=== PATIENT | female | born 1950 | race Caucasian/White ===

== ENCOUNTER 2018-05-24 13:45 | Outpatient (CLI) | payer MEDICARE, MEDICAID | END 2018-05-24 13:46 | disposition home or self-care (01) | LOC: BICMAMMO 13:45 | PROVIDERS: ATTEND Family Medicine | DX: Z12.31 Encounter for screening mammogram for malignant neoplasm of breast (principal); N63.11 Unspecified lump in the right breast, upper outer quadrant | CPT/HCPCS: 77063; 77067 ==

== ENCOUNTER 2018-05-30 13:12 | Outpatient (CLI) | payer MEDICARE, MEDICAID | END 2018-05-30 13:13 | disposition home or self-care (01) | LOC: BICMAMMO 13:12 | PROVIDERS: ATTEND Family Medicine | DX: N63.10 Unspecified lump in the right breast, unspecified quadrant (principal) | CPT/HCPCS: 76642; 77065; G0279 ==

== ENCOUNTER 2018-07-16 09:20 | Outpatient (CLI) | payer MEDICARE, MEDICAID ==
[2018-07-16 10:34] LABS: #Basophils 0.1 thou/uL (0.0-0.2); #Eosinphils 0.4 thou/uL (0.0-0.7); #Lymphocytes 1.2 thou/uL (1.20-3.40); #Monocytes 0.6 thou/uL (0.11-0.59); #Neutrophils 4.5 thou/uL (1.40-6.50); %Basophils 0.8 % (0.0-1.0); %Eosinophils 6.5 % (0.0-10.0); %Lymphocytes 16.9 % (21.0-51.0); %Monocytes 9.2 % (0.0-10.0); %Neutrophils 66.6 % (42.0-75.0); Hemoglobin 14.1 g/dL (12.0-16.0); Mean Corpuscular HGB CONC 33.3 g/dL (32.0-36.0); Mean Corpuscular Hemoglobin 29.5 pg (27.0-31.0); Mean Corpuscular Volume 88.6 fL (78.0-98.0); Mean Platelet Volume 8.5 fL (7.4-10.4); Platelet Count 257 thou/uL (130-400); RBC Distribution Width 13.6 % (11.5-14.5); Red Blood Cell (RBC) Count 4.78 mill/uL (4.20-5.40); White Blood Cell (WBC) Count 6.8 thou/uL (4.8-10.8)
[2018-07-16 10:47] LABS: Anion Gap 11 mmol/L (10-20); BUN (Urea Nitrogen) 17 mg/dL (9.8-20.1); Calc. Creatinine Clearance 0 mL/min (70-130); Calcium 10.3 mg/dL (7.8-10.44); Carbon Dioxide 26 mmol/L (23-31); Chloride 105 mmol/L (98-107); Estimated GFR-MDRD 57; Glucose 154 mg/dL (80-115); Potassium 4.6 mmol/L (3.5-5.1); Sodium 137 mmol/L (136-145)
--- NOTE | 2018-07-17 07:31 | EKG ---
Test Reason : Blood Pressure : / mmHG Vent. Rate : 081 BPM Atrial Rate : 081 BPM P-R Int : 186 ms QRS Dur : 090 ms QT Int : 362 ms P-R-T Axes : 053 020 031 degrees QTc Int : 420 ms Normal sinus rhythm Cannot rule out Inferior infarct (cited on or before 22-JUL-2017) Abnormal ECG When compared with ECG of 22-JUL-2017 16:13, T wave inversion no longer evident in Lateral leads QT has shortened Confirmed by DR. Rox VASQUEZ ([id number]) on 07/17/2018 7:31:16 AM Referred By: NATALY Confirmed By:DR. Rox VASQUEZ
== END 2018-07-16 09:21 | disposition home or self-care (01) ==
LOC: LABBT 09:20
PROVIDERS: ATTEND Specialist
DX: Z01.818 Encounter for other preprocedural examination (principal); C50.511 Malignant neoplasm of lower-outer quadrant of right female breast; Z17.0 Estrogen receptor positive status [ER+]
CPT/HCPCS: 80048; 85025; 93005; 93010

== ENCOUNTER 2018-07-23 06:41 | Day surgery (SDC) | payer MEDICARE, MEDICAID ==
[2018-07-16 10:00] VITALS: BMI 29.0
[2018-07-23] MEDS ORDERED: CEFAZOLIN/Water 2 GM/20 ML SYRINGE ONE (09:10)
[2018-07-23] MEDS ORDERED: Ketorolac Tromethamine 30 MG/ML VIAL ONE (09:10)
[2018-07-23] MEDS ORDERED: Bupivacaine HCl 0.5%/Epinephrine 1:200,000/PF 30 ml Vial ONE (09:13)
[2018-07-23] MEDS ORDERED: Isosulfan Blue 50 MG/5 ML VIAL ONE (09:13)
[2018-07-23] MEDS ORDERED: Lidocaine 2% 10 ML INJ ONE (09:13)
[2018-07-23] MEDS ORDERED: Bupivacaine/Epinephrine 0.25% 30 ML VIAL ONE ×2 (09:14→11:54)
[2018-07-23] MEDS ORDERED: Fentanyl 100 MCG/2 ML VIAL ONE (10:34)
--- NOTE | 2018-07-23 12:11 | NM ---
LYMPHOSCINTIGRAPHY RIGHT BREAST: HISTORY: Right breast cancer. FINDINGS: After explaining the procedure and answering all questions, the periareolar aspect of the right breas t was cleansed. A sterile technique was used to carefully inject into the skin a total volume of 1 m L, in 4 equal aliquots, containing a total of 438 millicuries of technetium 99m filtered sulfur collo id, at the 12 o'clock, 3 o'clock, 6 o'clock, and 9 o'clock periareolar positions of the right breast. The injection sites were carefully massaged by the patient. Scintigraphic imaging immediately showed uptake of radiotracer in a focus at the right axilla. The s kin overlying the lymph node was marked. The patient tolerated the procedure well and was transferre d in good condition. IMPRESSION: Technically successful lymphoscintigraphy, revealing a sentinel lymph node at the right axilla. POS: [facility]
--- NOTE | 2018-07-23 13:18 | MMO ---
SURGICAL SPECIMEN MAMMOGRAPHY: History: Breast cancer. FINDINGS: Mammographic evaluation of the surgical specimen obtained by Dr. Deng shows a portion of a localiz ation wire overlying the soft tissue. A thin curvilinear metallic density lies immediately distal to the localization wire. The length of that metallic fragment is estimated at 3 mm. POS: [facility] [place]
[2018-07-23] MEDS ORDERED: traMADol HCl 50 MG TAB ONE (13:39)
--- NOTE | 2018-07-24 13:46 | OP ---
DATE OF PROCEDURE: 07/23/2018 PREOPERATIVE DIAGNOSIS: Right breast cancer. POSTOPERATIVE DIAGNOSIS: Right breast cancer. OPERATION PERFORMED: Right axillary sentinel lymph node biopsy, right breast ultrasound-guided needl e localization, right breast needle localized lumpectomy. SURGEON: Raji Deng M.D. ANESTHESIA: General endotracheal. INDICATIONS: The patient is a 68-year-old white female. She was recently diagnosed with a right luz ast cancer. She expressed interest in plastic surgical consultation, which was obtained preoperative ly with Dr. Joseph. The initial thoughts were that she was going to have the lumpectomy on the right, followed by a breast lift/mastopexy on the right with an accompanying symmetry procedure with a masto pexy on the left. She, however, informed Dr. Joseph and myself this morning that she is very happy wit h the size of her right breast and does not really want to lift or reduce this breast at the time of her surgery. Dr. Joseph had already marked her with Lezama pattern markings for an appropriate incision, but since she decided against having a mastopexy on the right, I opted not to utilize these incision s. Her malignancy is in the upper outer portion of the right breast which, of course, does not confo rm to these incisions. She underwent lymphoscintigraphy in Nuclear Medicine preoperatively, identify ing sentinel lymph nodes. DESCRIPTION OF OPERATION: Informed consent was obtained. The patient was taken to the operating dexter m where general endotracheal anesthesia was obtained with the patient in the supine position. Right breast and axilla were prepped with ChloraPrep and draped in the sterile fashion. I infiltrated 3 mL of Lymphazurin into the periareolar subdermal tissue of the right breast and massaged the breast for 5 minutes. I turned my attention initially to the axilla. Local anesthetic was infiltrated and a t ransverse axillary incision was created. The Neoprobe was utilized to identify areas of maximum radi o intensity. I was able to identify 3 lymph nodes within the right axilla that had some degree of ra dioactivity or blue dye. These three lymph nodes were each dissected circumferentially and all inves ting lymphatics were divided between clamps and 3-0 silk ties. These were submitted for touch prep a nd the touch prep was found to be negative with each of these nodes. Meticulous hemostasis obtained within the wound. The wound was closed in layers with 3-0 and 4-0 Mon ocryl suture and Dermabond was placed at the end of the operation. Attention was then turned to the malignancy on the right breast. This was easily identified in the u pper outer quadrant of the right breast using the ultrasound. I marked the location of the malignanc y on the breast in a grid type fashion. I then placed the localizing needle directly into the malign michelle using a medial to lateral approach. Local anesthetic was infiltrated using 0.25% Marcaine with epinephrine and a transverse incision was created incorporating the localizing needle. Dissection was carried through skin and subcutaneous ti ssue. Flaps were raised within the lumpectomy incision. The tissue into which the needle entered wa s grasped with Allis clamps and I carefully dissected a wide lump of tissue around the localizing nee dle in line of the overlying skin graft. The specimen was removed and tagged with suture for orienta tion. By palpation, it seems that the posterior aspect was relatively close, although there was no e vidence of any residual malignancy. To be careful, I decided to obtain an additional posterior maeve n of tissue. This was about 5 mm thick along the entire posterior wall of the specimen. This was al so tagged for orientation. The initial specimen was removed and was submitted for specimen mammograp hy, which did show the malignancy and the clip within this. The wound was irrigated. Meticulous hemostasis obtained. The wound was closed in layers with 3-0 an d 4-0 Monocryl suture. Dermabond was placed externally. There were no complications. The patient t olerated the procedure well and was taken to recovery room in stable condition.
== END 2018-07-23 14:00 | disposition home or self-care (01) ==
LOC: SDC 06:41
PROVIDERS: ATTEND Specialist
PROC: 0HBT0ZZ Excision of Right Breast, Open Approach (ICD-10-PCS; principal; 2018-07-23)
PROC: 07B50ZX Excision of Right Axillary Lymphatic, Open Approach, Diagnostic (ICD-10-PCS; 2018-07-23)
DX: C50.411 Malignant neoplasm of upper-outer quadrant of right female breast (principal); I10 Essential (primary) hypertension; M19.90 Unspecified osteoarthritis, unspecified site; G89.29 Other chronic pain; M54.9 Dorsalgia, unspecified; E78.5 Hyperlipidemia, unspecified; I70.90 Unspecified atherosclerosis; M17.9 Osteoarthritis of knee, unspecified; Z87.891 Personal history of nicotine dependence; Z79.1 Long term (current) use of non-steroidal anti-inflammatories (NSAID); Z79.82 Long term (current) use of aspirin; Z79.4 Long term (current) use of insulin; Z79.899 Other long term (current) drug therapy; Z17.0 Estrogen receptor positive status [ER+]
CPT/HCPCS: 76098; 78195; 88307; 88333; 88334; A9541; J0131; J0670; J1885; J3010; Q9968

== ENCOUNTER 2018-08-05 10:09 | Outpatient (CLI) | payer MEDICARE, MEDICAID | END 2018-08-05 10:10 | disposition home or self-care (01) | LOC: BICMAMMO 10:09 | PROVIDERS: ATTEND Internal Medicine Medical Oncology | DX: C50.411 Malignant neoplasm of upper-outer quadrant of right female breast (principal); M85.89 Other specified disorders of bone density and structure, multiple sites; Z78.0 Asymptomatic menopausal state | CPT/HCPCS: 77080 ==

== ENCOUNTER 2019-04-14 13:36 | Emergency (ER) | payer MEDICARE, MEDICAID ==
[2019-04-14] MEDS ORDERED: Ketorolac Tromethamine 30 MG/ML VIAL ONE (13:56)
--- NOTE | 2019-04-14 14:33 | RAD ---
AP view of the pelvis INDICATION: Right hip pain for one week COMPARISON: None. FINDINGS: Bones: No acute fracture or subluxation is evident. Bone mineralization appears within normal limits. Hips: There is mild degenerative arthrosis of both hips. SI joints and symphysis pubis: There is mild degenerative change of both SI joints. Intrapelvic contents: There are moderate vascular calcifications seen involving the visualized vascul ature. IMPRESSION: No acute osseous abnormality.
--- NOTE | 2019-04-14 14:34 | RAD ---
Right hip 2 views INDICATION: Right hip pain COMPARISON: None FINDINGS: Bones: No acute osseous abnormality. Bone mineralization appears within normal limits. Hip joint: There is mild degenerative arthrosis of the right hip. There is abnormal convexity involvi ng the anterior aspect of the femoral head neck junction which can predispose symptoms of CAM type femoral acetabular impingement. SI joints and symphysis pubis: There is mild right SI joint osteoarthrosis. Intrapelvic contents: There are moderate vascular calcifications seen involving the visualized vascul ature. Surrounding soft tissues: Radiographically normal. IMPRESSION: 1. Mild osteoarthrosis of the right hip.
--- NOTE | 2019-04-14 14:45 | ULT ---
ULTRASOUND DOPPLER DUPLEX VENOUS RIGHT LOWER EXTREMITY: DATE: 04/14/2019 HISTORY: Right lower Katie pain TECHNIQUE: Grayscale, color-flow, and spectral analysis, of major veins of right lower extremity. FINDINGS: There is demonstration of blood flow with normal compressibility, of the right common femoral, profun da femoral, greater saphenous, femoral, popliteal, and posterior tibial, veins. IMPRESSION: Negative. No deep venous thrombosis of right lower extremity.
== END 2019-04-14 14:47 | disposition home or self-care (01) ==
LOC: SCSER 13:36
DX: M54.31 Sciatica, right side (principal); M25.551 Pain in right hip; I10 Essential (primary) hypertension; M19.90 Unspecified osteoarthritis, unspecified site; F32.9 Major depressive disorder, single episode, unspecified; F17.210 Nicotine dependence, cigarettes, uncomplicated; Z79.899 Other long term (current) drug therapy
CPT/HCPCS: 72170; 96372; J1885

== ENCOUNTER 2019-05-22 09:44 | Outpatient (CLI) | payer MEDICARE, MEDICAID ==
--- NOTE | 2019-05-22 12:34 | MRI ---
MRI LUMBAR SPINE WITHOUT CONTRAST: INDICATIONS: Spinal stenosis. Lumbar pain. TECHNIQUE: Multiple axial tomograms obtained through the lumbar spine. FINDINGS: The lumbar vertebrae maintain normal height and alignment. There are degenerative disk changes. Los s of disk space at L4-L5 and at L5-S1 noted. At L1-L2, there is a broad-based disk bulge with central protrusion, which does exhibit mild superior migration. This flattens the anterior thecal sac but does not result in significant central canal s tenosis. At L2-L3, there is a diffuse disk bulge. There is asymmetric disk protrusion paracentrally, on the l eft, indenting the anterior thecal sac. There is also a small focal protrusion paracentrally, on the right, which encroaches into the right foramina. A tiny cystic focus is seen along this disk margin , which may represent a tiny annular cyst associated with this small protrusion on the right. It gonzalez s encroach into the right foramina. There is abnormal signal in the anterior spinal canal, on the right, along the inferior border of the L3 vertebra. This appears to represent a sequestered disk fragment, which has migrated superiorly f rom L3-L4 disk. This fragment measures 8 mm in AP dimension in the axial plane and compresses the an terior thecal sac on the right. At the L3-L4 disk space, a broad-based bulge flattens the thecal sac , and there is mild central canal stenosis. At L4-L5, degenerative disk change with disk space narrowing. Mild diffuse disk bulge flattens the a nterior thecal sac. Facet hypertrophy. Mild central canal stenosis. At L5-S1, broad-based disk bulge with small central protrusion, indenting the anterior thecal sac. F acet hypertrophy. There is bilateral foraminal stenosis due to bilateral disk bulge and facet hypert rophy. The disk osteophyte complex is more prominent to the left and appears to displace the exiting left L5 nerve root. IMPRESSION: 1. Disk protrusion at L1-L2 with mild superior migration of the disk, centrally, as described. 2. Disk protrusion at L2-L3, as described above. 3. Sequestered disk fragment in the anterior spinal canal, on the right, along the inferior L3 verte bra, which appears to have migrated from the L3-L4 disk space. 4. Degenerative disk change at L4-L5 and at L5-S1, as described. POS: [facility]
== END 2019-05-22 09:45 | disposition home or self-care (01) ==
LOC: BICMRI 09:44
PROVIDERS: ATTEND Orthopaedic Surgery
DX: M48.061 Spinal stenosis, lumbar region without neurogenic claudication (principal); M51.37 Other intervertebral disc degeneration, lumbosacral region; M51.36 Other intervertebral disc degeneration, lumbar region; M51.26 Other intervertebral disc displacement, lumbar region; M51.27 Other intervertebral disc displacement, lumbosacral region
CPT/HCPCS: 72148

== ENCOUNTER 2019-05-26 13:14 | Emergency (ER) | payer MEDICARE, MEDICAID ==
[2019-05-26] MEDS ORDERED: Morphine 4 MG/ML VIAL ONE (14:39)
[2019-05-26] MEDS ORDERED: Dexamethasone 4 mg/ml Vial ONE (14:40)
[2019-05-26] MEDS ORDERED: Ondansetron ODT 4 MG TAB ONE (14:40)
== END 2019-05-26 15:40 | disposition home or self-care (01) ==
LOC: ERS 13:14
DX: M54.16 Radiculopathy, lumbar region (principal); F32.9 Major depressive disorder, single episode, unspecified; Z87.891 Personal history of nicotine dependence
CPT/HCPCS: 96372; 99283; J1100; J2270; Q0162

== ENCOUNTER 2019-06-05 10:36 | Inpatient (IN) | payer MEDICARE, MEDICAID ==
[2019-06-05] MEDS ORDERED: cefTRIAXone\\ROCEPHIN 2 GM VIAL ONE (11:08)
[2019-06-05 11:21] LABS: Bilirubin Negative (Negative); Blood, Urine 2+ (Negative); Clarity Turbid (Clear); Glucose, Urine (Dipstick) Greater than 1000 mg/dL (Negative); Leukocyte 75 Leu/uL (Negative); Nitrite 2+ (Negative); Protein, Urine (Dipstick) 30 mg/dL (Neg-Trace); Squamous Epithelial 0-3 HPF (0-3); Urobilinogen Normal mg/dL (Less than 2)
[2019-06-05 11:26] LABS: #Eosinphils 0.2 thou/uL (0.0-0.7); #Lymphocytes 0.5 thou/uL (1.20-3.40); #Neutrophils 10.2 thou/uL (1.40-6.50); %Basophils 0.4 % (0.0-1.0); %Eosinophils 1.4 % (0.0-10.0); %Lymphocytes 4.3 % (21.0-51.0); %Monocytes 8.3 % (0.0-10.0); %Neutrophils 85.5 % (42.0-75.0); Hemoglobin 11.4 g/dL (12.0-16.0); Mean Corpuscular HGB CONC 33.6 g/dL (32.0-36.0); Mean Corpuscular Hemoglobin 31.2 pg (27.0-31.0); Mean Platelet Volume 7.8 fL (7.4-10.4); Platelet Count 231 thou/uL (130-400); RBC Distribution Width 14.1 % (11.5-14.5); Red Blood Cell (RBC) Count 3.65 mill/uL (4.20-5.40); White Blood Cell (WBC) Count 11.9 thou/uL (4.8-10.8)
[2019-06-05 11:29] LABS: Bacteria/HPF 4+ HPF (None Seen)
--- NOTE | 2019-06-05 11:37 | RAD ---
EXAM: Single view of the chest HISTORY: Sepsis and tachycardia COMPARISON: None FINDINGS: Single view of the chest shows a normal sized cardiomediastinal silhouette. Increased dens ity is seen projecting over the right lower lobe which could represent atelectasis or an infiltrate. Degenerative changes are seen in the spine. There are multiple remote right rib fractures . IMPRESSION: Right basilar atelectasis versus infiltrate
[2019-06-05 11:50] LABS: ALT (SGPT) 91 U/L (8-55); AST (SGOT) 129 U/L (5-34); Albumin 3.9 g/dL (3.4-4.8); Alkaline Phosphatase 71 U/L (40-150); Anion Gap 16 mmol/L (10-20); BUN (Urea Nitrogen) 21 mg/dL (9.8-20.1); Bilirubin, Total 0.9 mg/dL (0.2-1.2); Calc. Creatinine Clearance 0 mL/min (70-130); Calcium 9.4 mg/dL (7.8-10.44); Carbon Dioxide 19 mmol/L (23-31); Chloride 99 mmol/L (98-107); Estimated GFR-MDRD 58; Globulin 2.7 g/dL (2.4-3.5); Glucose 79 mg/dL (80-115); Protein, Total 6.6 g/dL (6.0-8.3); Sodium 130 mmol/L (136-145)
[2019-06-05] MEDS ORDERED: Azithromycin 500 MG VIAL ONE (12:06)
[2019-06-05 15:57] VITALS: BMI 27.8
[2019-06-05] MEDS ORDERED: Dextrose 5% in Water 1,000 ML IV PRN (17:54)
[2019-06-05] MEDS ORDERED: hydrALAZINE 20 MG/ML VIAL SLOW IVP PRN (17:54)
[2019-06-05] MEDS ORDERED: Diabetic Tussin 200 MG/10 ML UDCUP PO PRN (17:54)
[2019-06-05] MEDS ORDERED: Benzonatate 100 MG CAP PO PRN (17:54)
[2019-06-05] MEDS ORDERED: Ondansetron PF 4 MG/2 ML Vial IVP PRN (17:54)
[2019-06-05] MEDS ORDERED: Dextrose 50% Abboject 50 ML SYRINGE SLOW IVP PRN (17:54)
[2019-06-05] MEDS: Sodium Chloride 0.9% 1,000 ML IV SCH (18:41)
[2019-06-05] MEDS: Acetaminophen 500 MG TAB PO PRN ×2 (18:41→23:41)
[2019-06-05] MEDS: Famotidine 20 MG TAB PO SCH (20:08)
[2019-06-05] MEDS: Bupropion 150 MG XL TAB PO SCH (20:08)
[2019-06-05] MEDS: metFORMIN 500 MG TAB PO SCH (20:08)
[2019-06-05] MEDS: traMADol HCl 50 MG TAB PO PRN (23:40)
--- NOTE | 2019-06-06 01:08 | HP ---
PRIMARY CARE PROVIDER: Dr. Cuca Martinez. CHIEF COMPLAINT: Falling. HISTORY OF PRESENT ILLNESS: This is a 68-year-old female, who presented to [facility] Emergency Department in transfer by EMS personnel after apparently sustaining multiple falls at home. The patient resides at [place] at [place], stating multiple falls over the last several days. The patient states she was increased up to 1200 mg of gabapentin in the last 2 to 3 days and has been taking the higher dose, noting difficulty walking, somnolence, and generally feeling out of sorts. The patient has been using a rolling walker in the last several days. Previously, ambulating without assistive device. The patient denies any loss of consciousness, but states she felt unsteady on her feet after taking the gabapentin. The patient also admits to taking concurrent hydrocodone for back pain, apparently prescribed by her cork painter and grader. The patient does admit to some urinary frequency, but no documented fever, chills, or recent exposure history. EMS was notified after patient fell at home. On evaluating the patient noting O2 saturations in the 70% range on room air. The patient was placed on oxygen supplementation and given Tylenol 1000 mg x1 dose after patient was noted with 103 degree fever. The patient denied any known sick contacts or recent travel history. The patient does admit to mild productive cough of yellow sputum. In the emergency room, the patient underwent general evaluation including chest imaging showing questionable right lower lobe infiltrate. Urinalysis also suspicious for infectious process. At which point, the patient received IV Zithromax and Rocephin. The patient also received DuoNeb and intravenous normal saline after concern for sepsis as the patient met multiple criteria. PAST MEDICAL HISTORY: 1. Hypertension. 2. Diabetes mellitus, type 2. 3. Chronic pain syndrome. 4. History of breast cancer, status post surgery and chemotherapy. 5. Tobacco abuse. 6. Atherosclerosis. 7. Hyperlipidemia. 8. Hyperthyroidism. 9. Major depression. PAST SURGICAL HISTORY: 1. Status post bilateral tubal ligation. 2. Status post cervical spine disk repair. 3. Status post right breast lumpectomy. CURRENT MEDICATIONS: Based on previous admission in 2018; 1. Enteric-coated aspirin 81 mg p.o. daily. 2. Bupropion 150 mg p.o. b.i.d. 3. Invokana 100 mg p.o. q.a.m. 4. Glargine insulin 20 units subcutaneously daily. 5. Losartan 50 mg p.o. daily. 6. Mobic 7.5 mg p.o. q.a.m. 7. Metformin 500 mg p.o. b.i.d. 8. Lovastatin 20 mg p.o. nightly. ALLERGIES: NO KNOWN DRUG ALLERGIES. FAMILY HISTORY: Mother and father with history of CVA. SOCIAL HISTORY: The patient resides at [facility] x4 years. Multiple falls. Tobacco use currently. No alcohol or illicit drug use. REVIEW OF SYSTEMS: CONSTITUTIONAL: Negative for weight loss or gain, ability to conduct usual activities. SKIN: Negative for rash, itching. EYES: Negative for double vision, pain. ENT/MOUTH: Negative for nose bleeding, neck stiffness, pain, tenderness. CARDIOVASCULAR: Negative for palpitations, dyspnea on exertion, orthopnea. RESPIRATORY: Negative for shortness of breath, wheezing, cough, hemoptysis, fever or night sweats. GASTROINTESTINAL: Negative for poor appetite, abdominal pain, heartburn, nausea, vomiting, constipation, or diarrhea. GENITOURINARY: Negative for urgency, frequency, dysuria, nocturia. MUSCULOSKELETAL: Negative for pain, swelling. NEUROLOGIC/PSYCHIATRIC: Negative for anxiety, depression. ALLERGY/IMMUNOLOGIC: Negative for skin rash, bleeding tendency. Otherwise negative except as stated per HPI. PHYSICAL EXAMINATION: VITAL SIGNS: On admission, blood pressure 116/59, pulse 87, respiratory rate 18, temperature 98.6 degrees Fahrenheit, initially 103 degrees Fahrenheit on admission in the emergency room. O2 saturation 92% on 3 L/minute by nasal cannula. GENERAL APPEARANCE: This is a 68-year-old female, alert and oriented x3, pleasant, in no acute distress. HEENT: Pupils are equal, round, reactive to light and accommodation. Extraocular muscles are intact. No scleral icterus. No conjunctival injection. Nares patent. OP is clear. Edentulous. NECK: Supple. No cervical adenopathy. No thyromegaly. No carotid bruits. No JVD appreciated. Cervical spine with full active and passive range of motion. No meningeal signs noted. CHEST: Diminished breath sounds in the bases bilaterally. Occasional expiratory wheeze. CARDIOVASCULAR: S1, S2 without noted murmur, rub, or gallop. ABDOMEN: Rounded, soft, nontender, and nondistended. Bowel sounds are positive in all 4 quadrants. There is no hepatosplenomegaly. No abdominal bruits. No rebound or guarding appreciated. EXTREMITIES: Warm and dry with fair turgor. No clubbing, cyanosis, or asymmetric edema appreciated. Pulses palpable distally at the dorsalis pedis, posterior tibial, and popliteal arteries bilaterally. Capillary refill less than 2 seconds. NEUROLOGIC: Cranial nerves 2 through 12 are grossly intact. No focal or lateralizing signs appreciated. PERTINENT LABORATORY AND X-RAY FINDINGS: Sodium 130, potassium 4.0, chloride 99, CO2 of 19, BUN 21, creatinine 0.96, estimated GFR 58. Lactic acid level 0.8, total bilirubin 0.9, AST 129, ALT of 91, alkaline phosphatase 71. CBC showed a white blood cell count of 11.9, hemoglobin 11.4, hematocrit 34, and platelet count 231 with 86% neutrophils. Urinalysis positive for glucose, ketones, blood, nitrites, and leukocyte esterase. Portable chest x-ray dated 06/05/2019, showed right basilar infiltrate. EKG dated 06/05/2019 by my interpretation shows sinus mechanism with heart rates in the low 100s. Normal R-wave progression noted in the precordial leads. Normal axis. No acute ST-T wave changes appreciated. ASSESSMENT/PLAN: 1. Sepsis. Suspect secondary to community-acquired pneumonia in addition to urinary tract infection. We will continue general sepsis protocol. The patient received IV fluids in addition to Rocephin and Zithromax in the Emergency Department. Continue general management as outlined below. 2. Right lower lobe community-acquired bacterial pneumonia. We will continue Levaquin 750 mg IV daily. Add DuoNeb q.4 hours. Blood cultures pending. 3. Urinary tract infection. Suspected given initial urinalysis results. Continue Levaquin as outlined above and await final urine culture results. 4. Hyponatremia. Suspect multifactorial including poor oral intake and current infectious process. Continue intravenous normal saline at 75 mL/h. Repeat sodium level in the a.m. 5. Multiple falls. Suspect multifactorial including iatrogenic influence with increased gabapentin dosing. Hold gabapentin and sedating medications. PT evaluation for functional assessment. 6. Tobacco abuse. We will offer smoking cessation resource prior to discharge. 7. Diabetes mellitus type 2, insulin requiring. Insulin sliding scale for reflexive coverage. Resume home insulin regimen with serial Accu-Cheks. ADA diet. 8. Prophylaxis. SCDs while in bed. Pepcid 20 mg p.o. b.i.d. PT evaluation pending. CODE STATUS: Full. Surrogate medical decision maker is the patient's sister. Job ID: [id number]
[2019-06-06 06:37] LABS: Band 8 % (5-11); Eosinophils 1 % (0-10); Hemoglobin 10.4 g/dL (12.0-16.0); Lymphocytes 8 % (21-51); MDiff Complete? YES; Mean Corpuscular HGB CONC 32.9 g/dL (32.0-36.0); Mean Corpuscular Hemoglobin 31.5 pg (27.0-31.0); Mean Corpuscular Volume 95.7 fL (78.0-98.0); Mean Platelet Volume 7.6 fL (7.4-10.4); Metamyelocyte 2 % (0-0); Monocytes 5 % (0-10); Neutrophil 75 % (42-75); Platelet Count 218 thou/uL (130-400); Platelet Morphology Comment Appears Adequate; RBC Distribution Width 14.2 % (11.5-14.5); Reactive Lymphocytes 1 % (0-10); Red Blood Cell (RBC) Count 3.29 mill/uL (4.20-5.40); White Blood Cell (WBC) Count 8.7 thou/uL (4.8-10.8)
[2019-06-06 06:51] LABS: ALT (SGPT) 66 U/L (8-55); AST (SGOT) 86 U/L (5-34); Albumin 3.1 g/dL (3.4-4.8); Alkaline Phosphatase 62 U/L (40-150); Anion Gap 14 mmol/L (10-20); BUN (Urea Nitrogen) 13 mg/dL (9.8-20.1); Bilirubin, Total 0.4 mg/dL (0.2-1.2); Calc. Creatinine Clearance 85 mL/min (70-130); Calcium 8.7 mg/dL (7.8-10.44); Carbon Dioxide 17 mmol/L (23-31); Chloride 110 mmol/L (98-107); Estimated GFR-MDRD 74; Globulin 2.6 g/dL (2.4-3.5); Glucose 79 mg/dL (80-115); Protein, Total 5.7 g/dL (6.0-8.3); Sodium 137 mmol/L (136-145)
[2019-06-06] MEDS: traMADol HCl 50 MG TAB PO PRN (08:16)
[2019-06-06] MEDS: Losartan 25 MG TAB PO SCH (08:17)
[2019-06-06] MEDS: Famotidine 20 MG TAB PO SCH ×2 (08:17→20:23)
[2019-06-06] MEDS: Bupropion 150 MG XL TAB PO SCH (08:17)
[2019-06-06] MEDS: metFORMIN 500 MG TAB PO SCH (08:17)
[2019-06-06] MEDS: Aspirin 81 mg Enteric Coated Tablet PO SCH (08:17)
[2019-06-06] MEDS: Sodium Chloride 0.9% 1,000 ML IV SCH (08:19)
[2019-06-06] MEDS: Lidocaine 5% Patch TD SCH (08:20)
[2019-06-06] MEDS: Insulin Glargine 20 UNITS in Pre-Filled Syringe 1 EACH SC SCH (08:20)
[2019-06-06] MEDS: Fluticasone Propionate Nasal Spray 16 gm Bottle NASAL SCH (08:20)
[2019-06-06] MEDS: Acetaminophen 500 MG TAB PO PRN ×2 (08:33→18:14)
[2019-06-06] MEDS ORDERED: Non-Formulary Item 1 EACH (Insulin Glargine,Hum.Rec.Anlog [Basaglar Kwikpen U-100] 20 UNI SQ SCH (09:00)
[2019-06-06] MEDS ORDERED: Canagliflozin [Invokana] 100 MG PO SCH (09:00)
[2019-06-06] MEDS: Meloxicam 7.5 MG TAB PO SCH (09:39)
[2019-06-06] MEDS: Ondansetron ODT 4 MG TAB PO PRN (16:10)
--- NOTE | 2019-06-06 17:15 | PDOC.HOSPP ---
- Subjective Subjective: f/u for sepsis due to PNA/UTI with Ucx showing GNR and currently on Levaquin. - Objective Vital Signs & Weight: Vital Signs (12 hours) Temp Pulse Resp BP BP Pulse Ox Pulse Ox 06/06/19 16:00 99.4 F 106 H 18 130/60 91 L 06/06/19 14:09 89 20 90 L 06/06/19 11:20 86 20 94 L 06/06/19 11:00 98.9 F 102 H 20 142/74 H 92 L 06/06/19 10:31 91 L 06/06/19 08:33 102 F H 06/06/19 08:15 95 06/06/19 08:00 101.2 F H 103 H 20 133/73 95 06/06/19 07:08 87 22 H 93 L 06/06/19 05:42 98.5 F 87 20 137/78 93 L Pulse Ox Pulse Ox 06/06/19 16:00 06/06/19 14:09 06/06/19 11:20 06/06/19 11:00 06/06/19 10:31 83 L 90 L 06/06/19 08:33 06/06/19 08:15 06/06/19 08:00 06/06/19 07:08 06/06/19 05:42 Weight Weight 172 lb 8 oz I&O: 06/05/19 06/06/19 06/07/19 06:59 06:59 06:59 Intake Total 1780 Balance 1780 Result Diagrams: 06/06/19 05:44 06/06/19 05:44 Additional Labs: Accuchecks 06/06/19 06/06/19 06/06/19 16:50 11:38 05:47 POC Glucose 130 H 113 H 102 06/05/19 06/05/19 20:04 17:09 POC Glucose 188 H 76 Microbiology 06/05/19 11:15 Venous blood - Right Arm Blood Culture - Preliminary Specimen has been received and culture in progress. No Growth to date. 06/05/19 11:04 Urine Straight Catheter Urine Culture - Preliminary Presumptive Escherichia coli Laboratory Tests 06/05/19 06/05/19 06/06/19 11:15 11:15 05:44 WBC 11.9 H Hgb 11.4 L Neutrophils % 85.5 H Neutrophils % (Manual) AST 129 H 86 H ALT 91 H 66 H 06/06/19 05:44 WBC Hgb Neutrophils % Neutrophils % (Manual) 75 AST ALT ROS - Review of Systems All systems: All other ROS were reviewed and found negative. - Medication Medications: Active Medications Generic Name Dose Route Start Last Admin Trade Name Freq PRN Reason Stop Dose Admin Acetaminophen 1,000 mg 06/05/19 17:54 06/06/19 08:33 Tylenol PO 1,000 mg Q6H PRN Administration Mild Pain (1-3) Albuterol/Ipratropium 3 ml 06/05/19 19:00 06/06/19 14:09 Duoneb NEB 3 ml [id number] BRAD Administration Aspirin 81 mg 06/06/19 09:00 06/06/19 08:17 Ecotrin PO 81 mg QAM BRAD Administration Bupropion HCl 150 mg 06/05/19 21:00 06/06/19 08:17 Wellbutrin Xl PO 150 mg BID BRAD Administration Famotidine 20 mg 06/05/19 21:00 06/06/19 08:17 Pepcid PO 20 mg BID BRAD Administration Fluticasone Propionate 0 gm 06/06/19 09:00 06/06/19 08:20 Flonase Nasal [place] NASAL 1 spr DAILY BRAD Administration Levofloxacin 750 mg/ Device 150 mls @ 100 mls/hr 06/05/19 18:30 06/05/19 18: 41 IVPB 150 mls Q24HR BRAD Administration Sodium Chloride 1,000 mls @ 75 mls/hr 06/05/19 17:54 06/06/19 08:19 Normal Saline 0.9% IV 1,000 mls .[id number] BRAD Administration Insulin Glargine 20 units/ 0.2 mls @ 0 mls/hr 06/06/19 09:00 06/06/19 08:20 Miscellaneous Medication SC 0.2 mls QAM BRAD Administration Lidocaine 1 patch 06/06/19 09:00 06/06/19 08:20 Lidoderm 5% Patch TD 1 patch DAILY BRAD Administration Losartan Potassium 50 mg 06/06/19 09:00 06/06/19 08:17 Cozaar PO 50 mg QAM BRAD Administration Meloxicam 7.5 mg 06/06/19 09:00 06/06/19 09:39 Mobic PO 7.5 mg QAM BRAD Administration Metformin HCl 500 mg 06/05/19 21:00 06/06/19 08:17 Glucophage PO 500 mg BID BRAD Administration Ondansetron HCl 4 mg 06/05/19 17:54 06/06/19 16:10 Zofran Odt PO 4 mg Q6H PRN Administration Nausea/Vomiting Sodium Chloride 10 ml 06/05/19 21:00 06/06/19 08:21 Flush - Normal Saline IVF 10 ml Q12HR BRAD Administration Tramadol HCl 50 mg 06/05/19 23:05 06/06/19 08:16 Ultram PO 50 mg Q4H PRN Administration Moderate Pain (4-6) - Exam NAD, awake alert Eye: PERRL, anicteric sclera ENT: normocephalic atraumatic, no oropharyngeal lesions Neck: supple, symmetric, no JVD, no Thyromegaly Heart: RRR, no murmur, no gallops, no rubs Respiratory: no wheezes, no rales, no tachypnea, rhonchi (few basilar rhonchi) Gastrointestinal: soft, non-tender, non-distended, normal bowel sounds, no palpable masses Extremities: no cyanosis, no edema Neurological: CN's grossly intact, no focal deficits, no new deficit Psychiatric: normal behavior, A&O x 3 Hosp A/P (1) Sepsis Code(s): A41.9 - SEPSIS, UNSPECIFIED ORGANISM Status: Acute Plan: Continue Levaquin, await final Ucx identification, continue IVF's (2) Bacterial pneumonia Code(s): J15.9 - UNSPECIFIED BACTERIAL PNEUMONIA Status: Acute Plan: Continue Levaquin, pulmonary support, O2 prn (3) E. coli UTI Code(s): N39.0 - URINARY TRACT INFECTION, SITE NOT SPECIFIED; B96.20 - UNSP ESCHERICHIA COLI THE CAUSE OF DISEASES CLASSD [id number] Status: Acute Plan: Continue Levaquin IV pending final identification/sensitivities, add Rocephin pending sensitivities (4) Multiple falls Code(s): R29.6 - REPEATED FALLS Status: Acute Plan: PT/OT for functional assessment (5) DM2 (diabetes mellitus, type 2) Status: Chronic Plan: ISS, Metformin, Lantus, ADA - Plan continue antibiotics, PT/OT, hospice social worker, out of bed/ambulate, DVT proph w/ SCDs Stable overall Continue Levaquin Add Rocephin IV pending final cx results with sensitivities OOB with PT Resume home medications but hold BP regimen x 24h Saline lock IVF AM lab: CMP
[2019-06-06] MEDS ORDERED: cefTRIAXone\\ROCEPHIN 2 GM in Sodium Chloride 0.9% 100 ML IVPB SCH ×2 (18:00→19:30)
[2019-06-06] MEDS: Bupropion 100 MG SR TAB PO SCH (20:23)
[2019-06-07] MEDS: traMADol HCl 50 MG TAB PO PRN ×2 (03:18→10:08)
[2019-06-07] MEDS: Acetaminophen 500 MG TAB PO PRN ×2 (03:19→16:51)
[2019-06-07 07:06] LABS: ALT (SGPT) 56 U/L (8-55); AST (SGOT) 55 U/L (5-34); Albumin 3.3 g/dL (3.4-4.8); Alkaline Phosphatase 65 U/L (40-150); Anion Gap 14 mmol/L (10-20); BUN (Urea Nitrogen) 14 mg/dL (9.8-20.1); Bilirubin, Total 0.5 mg/dL (0.2-1.2); Calc. Creatinine Clearance 82 mL/min (70-130); Calcium 8.8 mg/dL (7.8-10.44); Carbon Dioxide 20 mmol/L (23-31); Chloride 106 mmol/L (98-107); Estimated GFR-MDRD 71; Globulin 2.6 g/dL (2.4-3.5); Glucose 104 mg/dL (80-115); Protein, Total 5.9 g/dL (6.0-8.3); Sodium 136 mmol/L (136-145)
[2019-06-07] MEDS ORDERED: metFORMIN 500 MG TAB PO SCH (09:00)
[2019-06-07] MEDS ORDERED: (Empagliflozin [Jardiance] 10 MG) PO SCH (09:00)
[2019-06-07] MEDS: Insulin Glargine 20 UNITS in Pre-Filled Syringe 1 EACH SC SCH (10:07)
[2019-06-07] MEDS: Lidocaine 5% Patch TD SCH (10:08)
[2019-06-07] MEDS: Aspirin 81 mg Enteric Coated Tablet PO SCH (10:09)
[2019-06-07] MEDS: Famotidine 20 MG TAB PO SCH ×2 (10:09→21:46)
[2019-06-07] MEDS: Losartan 25 MG TAB PO SCH (10:10)
[2019-06-07] MEDS: Fluticasone Propionate Nasal Spray 16 gm Bottle NASAL SCH (10:10)
[2019-06-07] MEDS: Anastrozole 1 MG TAB PO SCH (10:12)
[2019-06-07] MEDS: Meloxicam 7.5 MG TAB PO SCH (10:13)
[2019-06-07] MEDS: Bupropion 100 MG SR TAB PO SCH ×2 (11:12→21:46)
--- NOTE | 2019-06-07 11:38 | PDOC.HOSPP ---
- Subjective Subjective: Still has the cough, but it is less productive and the sputum is clearer. Says she cannot do what is being asked of her, like taking a deep breath. Says it makes her want to "puke". Says she cannot get and walk with the walker with therapy either. - Objective Vital Signs & Weight: Vital Signs (12 hours) Temp Pulse Resp BP BP Pulse Ox 06/07/19 10:29 101 H 24 H 06/07/19 06:39 95 22 H 90 L 06/07/19 03:24 98.5 F 83 20 133/68 99 06/07/19 00:00 98.8 F 83 20 106/60 99 Weight Weight 172 lb 8 oz I&O: 06/06/19 06/07/19 06/08/19 06:59 06:59 06:59 Intake Total 1780 1170 Balance 1780 1170 Result Diagrams: 06/06/19 05:44 06/07/19 06:18 Additional Labs: Accuchecks 06/07/19 06/06/19 06/06/19 05:28 20:05 16:50 POC Glucose 114 H 168 H 130 H 06/06/19 11:38 POC Glucose 113 H ROS - Review of Systems All systems: All other ROS were reviewed and found negative. - Medication Medications: Active Medications Generic Name Dose Route Start Last Admin Trade Name Freq PRN Reason Stop Dose Admin Acetaminophen 1,000 mg 06/05/19 17:54 06/07/19 03:19 Tylenol PO 1,000 mg Q6H PRN Administration Mild Pain (1-3) Albuterol/Ipratropium 3 ml 06/05/19 19:00 06/07/19 10:29 Duoneb NEB 3 ml [id number] BRAD Administration Anastrozole 1 mg 06/07/19 09:00 06/07/19 10:12 Arimidex PO 1 mg DAILY BRAD Administration Aspirin 81 mg 06/06/19 09:00 06/07/19 10:09 Ecotrin PO 81 mg QAM BRAD Administration Bupropion HCl 200 mg 06/06/19 21:00 06/07/19 11:12 Wellbutrin Sr PO 200 mg BID BRAD Administration Famotidine 20 mg 06/05/19 21:00 06/07/19 10:09 Pepcid PO 20 mg BID BRAD Administration Fluticasone Propionate 0 gm 07/26/19 09:00 06/07/19 10:10 Flonase Nasal [place] NASAL 2 spr DAILY BRAD Administration Guaifenesin 200 mg 06/05/19 17:54 06/06/19 20:35 Robitussin Sf PO 200 mg Q4H PRN Administration Cough Levofloxacin 750 mg/ Device 150 mls @ 100 mls/hr 06/05/19 18:30 06/06/19 18: 07 IVPB 150 mls Q24HR BRAD Administration Insulin Glargine 20 units/ 0.2 mls @ 0 mls/hr 06/06/19 09:00 06/07/19 10:07 Miscellaneous Medication SC 0.2 mls QAM BRAD Administration Ceftriaxone Sodium 2 gm/ 100 mls @ 200 mls/hr 06/06/19 19:30 06/06/19 20:22 Sodium Chloride IVPB 100 mls 1930 BRAD Administration Lidocaine 1 patch 06/06/19 09:00 06/07/19 10:08 Lidoderm 5% Patch TD 1 patch DAILY BRAD Administration Losartan Potassium 50 mg 06/06/19 09:00 06/07/19 10:10 Cozaar PO 50 mg QAM BRAD Administration Meloxicam 7.5 mg 06/06/19 09:00 06/07/19 10:13 Mobic PO 7.5 mg QAM BRAD Administration Metformin HCl 750 mg 06/07/19 09:00 06/07/19 10:09 Glucophage PO 750 mg DAILY BRAD Administration Ondansetron HCl 4 mg 06/05/19 17:54 06/06/19 16:10 Zofran Odt PO 4 mg Q6H PRN Administration Nausea/Vomiting Sodium Chloride 10 ml 06/05/19 21:00 06/07/19 10:13 Flush - Normal Saline IVF 10 ml Q12HR BRAD Administration Tramadol HCl 50 mg 06/05/19 23:05 06/07/19 10:08 Ultram PO 50 mg Q4H PRN Administration Moderate Pain (4-6) - Exam NAD, awake alert Neck: supple, symmetric, no JVD Heart: RRR, no murmur, no gallops, no rubs Respiratory: no wheezes, rales (Left base.) Gastrointestinal: soft, non-tender, non-distended, normal bowel sounds Skin: normal turgor Neurological: CN's grossly intact Psychiatric: normal affect, normal behavior, A&O x 3 Hosp A/P (1) Acute respiratory failure with hypoxia Code(s): J96.01 - ACUTE RESPIRATORY FAILURE WITH HYPOXIA Status: Acute (2) Bacterial pneumonia Code(s): J15.9 - UNSPECIFIED BACTERIAL PNEUMONIA Status: Acute (3) E. coli UTI Code(s): N39.0 - URINARY TRACT INFECTION, SITE NOT SPECIFIED; B96.20 - UNSP ESCHERICHIA COLI THE CAUSE OF DISEASES CLASSD ELSWHR Status: Acute (4) Multiple falls Code(s): R29.6 - REPEATED FALLS Status: Acute (5) DM2 (diabetes mellitus, type 2) Status: Chronic (6) HTN (hypertension) Code(s): I10 - ESSENTIAL (PRIMARY) HYPERTENSION Status: Chronic - Plan Continue therapy. Had multiple falls. Unclear if related to gabapentin and other meds, infection or other. Continue IV Levaquin for UTI and ? pneumonia. Repeat CXR in am. May just be the UTI and atelectasis. She does have hypoxia and productive cough. Not wanting to do deep breathing because she says it makes her nauseated. May be able to change to PO abx tomorrow. Oxygen sats are improving. Does have home Oxygen needs. Wean as possible.
[2019-06-07] MEDS: Ondansetron ODT 4 MG TAB PO PRN (16:51)
--- NOTE | 2019-06-07 17:29 | RAD ---
EXAM: Chest Two Views 06/07/2019 5:25 PM HISTORY: Hypoxemia and pneumonia COMPARISON: June 05, 2019 FINDINGS: Heart: Stable mild cardiomegaly Pulmonary vessels: Stable mild pulmonary vascular congestion Costophrenic angles: Clear. Lungs: There is worsening interstitial and airspace opacity seen diffusely throughout both lungs. Pneumothorax: None. Osseous structures:There is stable deformity involving the right chest wall Additional findings: None. IMPRESSION: 1. Worsening diffuse airspace opacities suspicious for worsening pneumonia. 2. Stable mild cardiomegaly and mild vascular congestion. A component of volume overload or CHF is no t excluded.
[2019-06-07 18:27] LABS: Base Excess (BEa) -9.4 mEq/L (-2.0 to +3.0); CO2 Tension 28.5 mmHg (35.0-45.0); Calcium, Ionized 1.18 mmol/L (1.12-1.30); Carboxyhemoglobin (COHb) 2.5 gm% (0.0-3.0); Hemoglobin (Hb) 11.8 g/dL (12.0-16.0); pH, Arterial 7.34 (7.35-7.45)
[2019-06-07 18:31] LABS: ALV-art Gradient 267.875 (0-20); Puncture Site RRA
[2019-06-07] MEDS ORDERED: Furosemide 40 MG/4 ML VIAL SLOW IVP SCH (19:00)
[2019-06-07 19:03] LABS: #Eosinphils 0.1 thou/uL (0.0-0.7); #Lymphocytes 0.6 thou/uL (1.20-3.40); #Monocytes 1.2 thou/uL (0.11-0.59); #Neutrophils 14.8 thou/uL (1.40-6.50); %Basophils 0.3 % (0.0-1.0); %Eosinophils 0.5 % (0.0-10.0); %Lymphocytes 3.7 % (21.0-51.0); %Neutrophils 88.4 % (42.0-75.0); Mean Corpuscular HGB CONC 33.3 g/dL (32.0-36.0); Mean Corpuscular Hemoglobin 31.2 pg (27.0-31.0); Mean Corpuscular Volume 93.7 fL (78.0-98.0); Mean Platelet Volume 7.2 fL (7.4-10.4); Platelet Count 280 thou/uL (130-400); Red Blood Cell (RBC) Count 3.55 mill/uL (4.20-5.40); White Blood Cell (WBC) Count 16.7 thou/uL (4.8-10.8)
[2019-06-07 19:18] LABS: Lactic Acid 1.8 mmol/L (0.5-2.2)
[2019-06-07 19:29] LABS: ALT (SGPT) 58 U/L (8-55); AST (SGOT) 57 U/L (5-34); Albumin 3.7 g/dL (3.4-4.8); Alkaline Phosphatase 78 U/L (40-150); Anion Gap 22 mmol/L (10-20); BUN (Urea Nitrogen) 17 mg/dL (9.8-20.1); Bilirubin, Total 0.8 mg/dL (0.2-1.2); Calc. Creatinine Clearance 75 mL/min (70-130); Calcium 9.3 mg/dL (7.8-10.44); Carbon Dioxide 13 mmol/L (23-31); Chloride 106 mmol/L (98-107); Estimated GFR-MDRD 65; Globulin 2.9 g/dL (2.4-3.5); Glucose 188 mg/dL (80-115); Potassium 4.1 mmol/L (3.5-5.1); Protein, Total 6.6 g/dL (6.0-8.3); Sodium 137 mmol/L (136-145)
[2019-06-07] MEDS ORDERED: methylPREDNISolone Sod Succ 40 MG VIAL IVP SCH (19:45)
[2019-06-07 20:32] LABS: Actual Bicarbonate (HCO3a) 14.3 mEq/L (22-28); CO2 Tension 27.3 mmHg (35.0-45.0); Carboxyhemoglobin (COHb) 2.5 gm% (0.0-3.0); Hemoglobin (Hb) 11.9 g/dL (12.0-16.0); O2 Tension (PaO2) 66.6 mmHg (> 80.0); Potassium - ABG Lab 3.85 mmol/L (3.70-5.30); pH, Arterial 7.34 (7.35-7.45)
[2019-06-07 20:39] LABS: ALV-art Gradient 270.035 (0-20); Puncture Site RBRACH
--- NOTE | 2019-06-07 20:43 | PDOC.EVN ---
Event Note - Event Note Event Note: she is doing well on high flow 50% fio2, d/w Dr.Amin bravo shortly to see if her PO2 improved will be getting ct chest wo contrast steroids, one dose lasix to keep her lean in view of suspected ards (bnp is low) on cefepime, levaq and vanc will f/u
--- NOTE | 2019-06-07 21:13 | CT ---
CT OF THE THORAX WITHOUT IV CONTRAST: 06/07/19 INDICATION: History of sepsis and ARDS. The patient is having respiratory distress and worsening shortness of luz ath and hypoxia. COMPARISON: Chest radiograph performed earlier on 06/07/19, 4:25 p.m. FINDINGS: There is diffuse ground glass air space opacities seen within both lungs with scattered areas of mild bronchiectasis. There are areas of calcified granuloma present within the lower lobes bilaterally. N o pleural effusions evident. There are coronary artery and thoracic aortic calcifications. There is fatty infiltration of the live r. No acute osseous abnormality is evident. There is scattered degenerative and osteoarthritic change. T here is healed anterolateral right third through fifth rib fractures. IMPRESSION: 1. Areas of air space opacity seen predominantly in a perihilar distribution with a background o f bronchiectasis can be seen with entity such as chronic hypersensitivity pneumonitis, interstitial l kanika disease or background of interstitial fibrosis with a superimposed pneumonia. 2. Findings of prior granulomatous disease. 3. Fatty liver. POS: [facility]
[2019-06-07] MEDS: Vancomycin HCl 1 GM in Premix Bag 1 BAG IVPB SCH (21:45)
[2019-06-07] MEDS: Cefepime 1 GM in Sodium Chloride 0.9% 100 ML IVPB SCH (21:46)
[2019-06-08] MEDS: methylPREDNISolone Sod Succ 40 MG VIAL IVP SCH ×4 (00:14→17:24)
[2019-06-08 04:59] LABS: HIV (1/2) Antibody/Antigen Non-Reactive (NonReactive); HIV 1/2 INDEX 0.12 S/CO (<1.00)
[2019-06-08 08:37] LABS: #Lymphocytes 0.4 thou/uL (1.20-3.40); #Monocytes 0.7 thou/uL (0.11-0.59); %Basophils 0.2 % (0.0-1.0); %Eosinophils 0.3 % (0.0-10.0); %Lymphocytes 2.6 % (21.0-51.0); %Monocytes 4.7 % (0.0-10.0); %Neutrophils 92.2 % (42.0-75.0); Hemoglobin 11.3 g/dL (12.0-16.0); Mean Corpuscular HGB CONC 33.6 g/dL (32.0-36.0); Mean Corpuscular Volume 92.2 fL (78.0-98.0); Mean Platelet Volume 7.7 fL (7.4-10.4); Platelet Count 287 thou/uL (130-400); Red Blood Cell (RBC) Count 3.64 mill/uL (4.20-5.40); White Blood Cell (WBC) Count 15.2 thou/uL (4.8-10.8)
[2019-06-08 08:49] LABS: ALT (SGPT) 54 U/L (8-55); AST (SGOT) 47 U/L (5-34); Albumin 3.8 g/dL (3.4-4.8); Alkaline Phosphatase 81 U/L (40-150); Anion Gap 19 mmol/L (10-20); BUN (Urea Nitrogen) 26 mg/dL (9.8-20.1); Bilirubin, Total 0.6 mg/dL (0.2-1.2); Calc. Creatinine Clearance 67 mL/min (70-130); Calcium 9.4 mg/dL (7.8-10.44); Carbon Dioxide 18 mmol/L (23-31); Chloride 105 mmol/L (98-107); Estimated GFR-MDRD 56; Globulin 3.1 g/dL (2.4-3.5); Glucose 216 mg/dL (80-115); Potassium 3.9 mmol/L (3.5-5.1); Protein, Total 6.9 g/dL (6.0-8.3); Sodium 138 mmol/L (136-145)
--- NOTE | 2019-06-08 09:28 | PDOC.HOSPP ---
- Subjective Subjective: Still working to breath. Feels well enough to complain about the food. Not aware that she any underlying lung problems. - Objective Vital Signs & Weight: Vital Signs (12 hours) Temp Pulse Resp Pulse Ox 06/08/19 07:49 94 L 06/08/19 07:30 97.8 F 06/08/19 05:42 93 26 H 93 L 06/08/19 04:00 98.0 F 06/08/19 00:00 98.7 F Weight Weight 172 lb 8 oz Most Recent Monitor Data Heart Rate from ECG 94 NIBP 123/74 NIBP BP-Mean 90 Respiration from ECG 32 SpO2 95 I&O: 06/07/19 06/08/19 06/09/19 06:59 06:59 06:59 Intake Total 1170 1000 Output Total 400 Balance 1170 600 Result Diagrams: 06/08/19 08:04 06/08/19 08:04 Additional Labs: Accuchecks 06/08/19 06/07/19 06/07/19 05:38 18:12 16:53 POC Glucose 173 H 167 H 148 H 06/07/19 11:31 POC Glucose 124 H ROS - Review of Systems All systems: All other ROS were reviewed and found negative. - Medication Medications: Active Medications Generic Name Dose Route Start Last Admin Trade Name Freq PRN Reason Stop Dose Admin Acetaminophen 1,000 mg 06/05/19 17:54 06/07/19 16:51 Tylenol PO 1,000 mg Q6H PRN Administration Mild Pain (1-3) Albuterol/Ipratropium 3 ml 06/05/19 19:00 06/08/19 05:42 Duoneb NEB 3 ml [id number] BRAD Administration Anastrozole 1 mg 06/07/19 09:00 06/07/19 10:12 Arimidex PO 1 mg DAILY BRAD Administration Aspirin 81 mg 06/06/19 09:00 06/07/19 10:09 Ecotrin PO 81 mg QAM BRAD Administration Bupropion HCl 200 mg 06/06/19 21:00 06/07/19 21:46 Wellbutrin Sr PO 200 mg BID BRAD Administration Famotidine 20 mg 06/05/19 21:00 06/07/19 21:46 Pepcid PO 20 mg BID BRAD Administration Fluticasone Propionate 0 gm 06/06/19 09:00 06/07/19 10:10 Flonase Nasal [place] NASAL 2 spr DAILY BRAD Administration Guaifenesin 200 mg 06/05/19 17:54 06/06/19 20:35 Robitussin Sf PO 200 mg Q4H PRN Administration Cough Levofloxacin 750 mg/ Device 150 mls @ 100 mls/hr 06/05/19 18:30 06/07/19 17: 56 IVPB 150 mls Q24HR BRAD Administration Insulin Glargine 20 units/ 0.2 mls @ 0 mls/hr 06/06/19 09:00 06/07/19 10:07 Miscellaneous Medication SC 0.2 mls QAM BRAD Administration Cefepime HCl 1 gm/ Sodium 100 mls @ 200 mls/hr 06/07/19 21:00 06/07/19 21:46 Chloride IVPB 100 mls Q12HR BRAD Administration Vancomycin HCl 1 gm/ Device 200 mls @ 200 mls/hr 06/07/19 22:00 06/07/19 21: 45 IVPB 200 mls 1000,2200 BRAD Administration Lidocaine 1 patch 06/06/19 09:00 06/07/19 10:08 Lidoderm 5% Patch TD 1 patch DAILY BRAD Administration Meloxicam 7.5 mg 06/06/19 09:00 06/07/19 10:13 Mobic PO 7.5 mg QAM BRAD Administration Methylprednisolone Sodium Succinate 40 mg 06/07/19 23:59 06/08/19 05:58 Solu-Medrol IVP 40 mg Q6HR BRAD Administration Ondansetron HCl 4 mg 06/05/19 17:54 06/07/19 16:51 Zofran Odt PO 4 mg Q6H PRN Administration Nausea/Vomiting Sodium Chloride 10 ml 06/05/19 21:00 06/08/19 00:14 Flush - Normal Saline IVF 10 ml Q12HR BRAD Administration Tramadol HCl 50 mg 06/05/19 23:05 06/07/19 10:08 Ultram PO 50 mg Q4H PRN Administration Moderate Pain (4-6) - Exam NAD, awake alert Heart: RRR, no murmur, no gallops, no rubs, normal peripheral pulses Respiratory: rales (Bilaterally. Bases.), tachypneic Gastrointestinal: soft, non-tender, non-distended, normal bowel sounds, no palpable masses, no hepatomegaly, no splenomegaly, no bruit Extremities: no cyanosis, no clubbing, no edema Neurological: no focal deficits Psychiatric: normal affect, normal behavior, A&O x 3 Hosp A/P (1) Acute respiratory failure with hypoxia Code(s): J96.01 - ACUTE RESPIRATORY FAILURE WITH HYPOXIA Status: Acute (2) Bacterial pneumonia Code(s): J15.9 - UNSPECIFIED BACTERIAL PNEUMONIA Status: Acute (3) E. coli UTI Code(s): N39.0 - URINARY TRACT INFECTION, SITE NOT SPECIFIED; B96.20 - UNSP ESCHERICHIA COLI THE CAUSE OF DISEASES CLASSD ELSWHR Status: Acute (4) Multiple falls Code(s): R29.6 - REPEATED FALLS Status: Acute (5) DM2 (diabetes mellitus, type 2) Status: Chronic (6) HTN (hypertension) Code(s): I10 - ESSENTIAL (PRIMARY) HYPERTENSION Status: Chronic - Plan Decompensated breathing /sats yesterday. Moved to [facility]. High flow [place]. Still has some work of breathing. CT with pneumonia, underlying chronic disease with bronchiectasis. Steroids, nebs, oxygen. Cefepime, Vanc, Levaquin. Pulm / CC consulted.
[2019-06-08] MEDS: Vancomycin HCl 1 GM in Premix Bag 1 BAG IVPB SCH ×2 (09:58→22:26)
[2019-06-08] MEDS: Fluticasone Propionate Nasal Spray 16 gm Bottle NASAL SCH (09:58)
[2019-06-08] MEDS: Meloxicam 7.5 MG TAB PO SCH (09:59)
[2019-06-08] MEDS: Famotidine 20 MG TAB PO SCH ×2 (09:59→21:43)
[2019-06-08] MEDS: Aspirin 81 mg Enteric Coated Tablet PO SCH (09:59)
[2019-06-08] MEDS: Anastrozole 1 MG TAB PO SCH (09:59)
[2019-06-08] MEDS: Insulin Glargine 20 UNITS in Pre-Filled Syringe 1 EACH SC SCH (09:59)
[2019-06-08] MEDS: Bupropion 100 MG SR TAB PO SCH ×2 (09:59→21:41)
[2019-06-08] MEDS: Cefepime 1 GM in Sodium Chloride 0.9% 100 ML IVPB SCH ×2 (10:04→21:40)
[2019-06-08] MEDS: Lidocaine 5% Patch TD SCH ×2 (10:07→10:11)
--- NOTE | 2019-06-08 10:24 | CON ---
DATE OF CONSULTATION: HISTORY OF PRESENT ILLNESS: Lanie Hong is a 68-year-old female, who has been in the hospital here since . Yesterday, she developed progressive respiratory failure with diffuse pulmonary infiltrates. Considered the ARDS. She was transferred to the MICU and placed on high flow, to which she has apparently done quite well. In fact, her sats are 90%, 91%, and 92%. She is able to verbalize and talk. Denies any pain or chest pain. Denies any difficulty breathing. Denies any cough. Former smoker, who quit smoking 5 years ago. She says she sees a local physician here, Dr. Martinez. Admission was prompted by falling down, found to have UTI, at the time of admission hitting her head, oxygen saturation was only 70% when she arrived, but she was afebrile. X-ray showed right-sided infiltrate. She was on the surgical floor when she was transferred last night. PAST MEDICAL HISTORY: 1. Hypertension. 2. Arthritis. 3. Breast cancer. 4. Chronic pain. 5. Former smoker. PAST SURGICAL HISTORY: 1. Lumpectomy, right breast cancer. 2. Tubal ligation. 3. Orthopedic surgery. 4. Cervical spine surgery. MEDICATIONS: 1. Lovastatin. 2. Insulin. 3. Invokana 100. 4. 1 mg. 5. Metformin 75 once a day. 6. Mobic. 7. Aspirin. 8. Losartan. 9. Jardiance 10. 10. Ibuprofen. ALLERGIES: NONE. SOCIAL HISTORY: Tobacco, as noted. Alcohol, none. REVIEW OF SYSTEMS: Otherwise, 10-point negative. PHYSICAL EXAMINATION: VITAL SIGNS: Sats 94% on high-flow, temperature 98, blood pressure 110/70, respiratory rate 18. CHEST: Minimal crackles. No wheezing. CARDIAC: Normal S1, S2. No gallops. ABDOMEN: No mass. LABORATORY DATA: White count 15,000, hemoglobin 11, hematocrit 33, platelet count 287. PO2 was 66, pCO2 of 12, pH of 7.34 on high-flow. Renal function is normal. Glucose slightly elevated. Urine is growing E. coli. IMPRESSION: 1. Respiratory failure. 2. Diffuse airspace disease. 3. Acute respiratory distress syndrome versus diastolic dysfunction. 4. Former smoker. 5. Breast cancer. 6. Diabetes. 7. Depression. PLAN: I agree with Maxipime, Levaquin, vancomycin, steroids, neb treatment. Deescalate antibiotics once cultures are back. Appears stable enough at this stage. If condition gets worse, she may require intubation and vent support. TIME SPENT: This is a consultation note, 70 minutes, 50% in direct patient care. Job ID: [id number]
--- NOTE | 2019-06-08 11:20 | RAD ---
PORTABLE CHEST 1 VIEW: Date: 06/08/19 Time: 0947 hours HISTORY: ARDS. COMPARISON: Exam of 06/07/19. FINDINGS/IMPRESSION: The heart size is prominent. There is pulmonary vascular congestion with superimposed air space opaci ties. No pneumothoraces or large effusions are seen. Old right-sided rib fractures are present. POS: [facility]
[2019-06-08] MEDS: HumaLOG 300 UNITS/3 ML VIAL SC PRN ×3 (12:13→21:48)
[2019-06-09] MEDS: methylPREDNISolone Sod Succ 40 MG VIAL IVP SCH ×4 (01:06→17:12)
[2019-06-09] MEDS: HumaLOG 300 UNITS/3 ML VIAL SC PRN ×3 (05:56→21:07)
[2019-06-09] MEDS: Famotidine 20 MG TAB PO SCH ×2 (08:53→21:05)
[2019-06-09] MEDS: Aspirin 81 mg Enteric Coated Tablet PO SCH (08:53)
[2019-06-09] MEDS: Anastrozole 1 MG TAB PO SCH (08:53)
[2019-06-09] MEDS: Bupropion 100 MG SR TAB PO SCH ×2 (08:54→21:05)
[2019-06-09] MEDS: Cefepime 1 GM in Sodium Chloride 0.9% 100 ML IVPB SCH ×2 (08:54→21:05)
[2019-06-09] MEDS: Meloxicam 7.5 MG TAB PO SCH (08:55)
[2019-06-09] MEDS: Lidocaine 5% Patch TD SCH (08:55)
[2019-06-09] MEDS: Fluticasone Propionate Nasal Spray 16 gm Bottle NASAL SCH (08:56)
[2019-06-09] MEDS: Vancomycin HCl 1 GM in Premix Bag 1 BAG IVPB SCH ×2 (08:56→23:05)
[2019-06-09] MEDS: Insulin Glargine 20 UNITS in Pre-Filled Syringe 1 EACH SC SCH (08:57)
[2019-06-09 09:32] LABS: Vancomycin, Trough 18.4 ug/mL
--- NOTE | 2019-06-09 19:06 | PDOC.HOSPP ---
- Subjective Subjective: Doing better today. Breathing is improved a little. - Objective Vital Signs & Weight: Vital Signs (12 hours) Temp Pulse Pulse Pulse Resp BP BP 06/09/19 18:55 100 32 H 06/09/19 15:20 97.6 F 06/09/19 14:24 06/09/19 14:22 96 32 H 06/09/19 10:49 06/09/19 10:47 96 26 H 06/09/19 10:39 98.3 F 06/09/19 10:23 99 98 143/78 H 126/70 06/09/19 07:44 06/09/19 07:40 96 23 H 06/09/19 07:33 06/09/19 07:13 97.5 F L Pulse Ox Pulse Ox Pulse Ox 06/09/19 18:55 06/09/19 15:20 06/09/19 14:24 96 06/09/19 14:22 96 06/09/19 10:49 95 06/09/19 10:47 95 06/09/19 10:39 06/09/19 10:23 92 L 91 L 06/09/19 07:44 99 06/09/19 07:40 97 06/09/19 07:33 92 L 06/09/19 07:13 Weight Weight 165 lb 12.602 oz Most Recent Monitor Data Heart Rate from ECG 95 NIBP 94/55 NIBP BP-Mean 68 Respiration from ECG 19 SpO2 94 I&O: 06/08/19 06/09/19 06/10/19 06:59 06:59 06:59 Intake Total 1000 1200 Output Total 400 1975 Balance 600 -775 Result Diagrams: 06/08/19 08:04 06/08/19 08:04 Additional Labs: Accuchecks 06/09/19 06/09/19 06/09/19 16:19 10:12 05:56 POC Glucose 173 H 312 H 197 H 06/08/19 20:37 POC Glucose 255 H ROS - Review of Systems All systems: All other ROS were reviewed and found negative. - Medication Medications: Active Medications Generic Name Dose Route Start Last Admin Trade Name Freq PRN Reason Stop Dose Admin Acetaminophen 1,000 mg 06/05/19 17:54 06/07/19 16:51 Tylenol PO 1,000 mg Q6H PRN Administration Mild Pain (1-3) Albuterol/Ipratropium 3 ml 06/05/19 19:00 06/09/19 18:55 Duoneb NEB 3 ml [id number] BRAD Administration Anastrozole 1 mg 06/07/19 09:00 06/09/19 08:53 Arimidex PO 1 mg DAILY BRAD Administration Aspirin 81 mg 06/06/19 09:00 06/09/19 08:53 Ecotrin PO 81 mg QAM BRAD Administration Bupropion HCl 200 mg 06/06/19 21:00 06/09/19 08:54 Wellbutrin Sr PO 200 mg BID BRAD Administration Famotidine 20 mg 06/05/19 21:00 06/09/19 08:53 Pepcid PO 20 mg BID BRAD Administration Fluticasone Propionate 0 gm 06/06/19 09:00 06/09/19 08:56 Flonase Nasal [place] NASAL Not Given DAILY [facility] Guaifenesin 200 mg 06/05/19 17:54 06/06/19 20:35 Robitussin Sf PO 200 mg Q4H PRN Administration Cough Levofloxacin 750 mg/ Device 150 mls @ 100 mls/hr 06/05/19 18:30 06/09/19 17: 25 IVPB 150 mls Q24HR BRAD Administration Insulin Glargine 20 units/ 0.2 mls @ 0 mls/hr 06/06/19 09:00 06/09/19 08:57 Miscellaneous Medication SC 0.2 mls QAM BRAD Administration Cefepime HCl 1 gm/ Sodium 100 mls @ 200 mls/hr 06/07/19 21:00 06/09/19 08:54 Chloride IVPB 100 mls Q12HR BRAD Administration Vancomycin HCl 1 gm/ Device 200 mls @ 200 mls/hr 06/07/19 22:00 06/09/19 08: 56 IVPB 200 mls 1000,2200 BRAD Administration Insulin Human Lispro 0 units 06/05/19 17:54 06/09/19 11:41 Humalog SC 8 unit .MODERATE SLIDING SC PRN Administration Moderate Correctional Scale Insulin Human Lispro 0 units 06/05/19 17:54 06/08/19 21:48 Humalog SC 3 unit .BEDTIME SLIDING SC PRN Administration Bedtime Correctional Scale Lidocaine 1 patch 06/06/19 09:00 06/09/19 08:55 Lidoderm 5% Patch TD Not Given DAILY BRAD Meloxicam 7.5 mg 06/06/19 09:00 06/09/19 08:55 Mobic PO 7.5 mg QAM BRAD Administration Methylprednisolone Sodium Succinate 40 mg 06/07/19 23:59 06/09/19 17:12 Solu-Medrol IVP 40 mg Q6HR BRAD Administration Ondansetron HCl 4 mg 06/05/19 17:54 06/07/19 16:51 Zofran Odt PO 4 mg Q6H PRN Administration Nausea/Vomiting Sodium Chloride 10 ml 06/05/19 21:00 06/09/19 08:56 Flush - Normal Saline IVF 10 ml Q12HR BRAD Administration Tramadol HCl 50 mg 06/05/19 23:05 06/07/19 10:08 Ultram PO 50 mg Q4H PRN Administration Moderate Pain (4-6) - Exam NAD, awake alert Neck: supple, symmetric, no JVD, no Thyromegaly, no lymphadenopathy, no carotid bruit Heart: RRR, no murmur, no gallops, no rubs, normal peripheral pulses Respiratory: CTAB, no wheezes, no rales, no ronchi, normal chest expansion, no tachypnea, normal percussion Gastrointestinal: soft, non-tender, non-distended, normal bowel sounds, no palpable masses, no hepatomegaly, no splenomegaly, no bruit Extremities: no cyanosis, no clubbing, no edema Neurological: CN's grossly intact, normal sensation to touch, no weakness, no focal deficits, no new deficit Musculoskeletal: normal tone Psychiatric: normal affect, normal behavior, A&O x 3 Hosp A/P (1) Acute respiratory failure with hypoxia Code(s): J96.01 - ACUTE RESPIRATORY FAILURE WITH HYPOXIA Status: Acute (2) Bacterial pneumonia Code(s): J15.9 - UNSPECIFIED BACTERIAL PNEUMONIA Status: Acute (3) E. coli UTI Code(s): N39.0 - URINARY TRACT INFECTION, SITE NOT SPECIFIED; B96.20 - UNSP ESCHERICHIA COLI THE CAUSE OF DISEASES CLASSD ELSWHR Status: Acute (4) Multiple falls Code(s): R29.6 - REPEATED FALLS Status: Acute (5) DM2 (diabetes mellitus, type 2) Status: Chronic (6) HTN (hypertension) Code(s): I10 - ESSENTIAL (PRIMARY) HYPERTENSION Status: Chronic - Plan Improving pneumonia on chronic ILD. Continue steroids, abx, nebs. Stay in IMCU. Wean oxygen as possible. UTI. SHould be covered with vanc, levaquin.
[2019-06-10] MEDS: methylPREDNISolone Sod Succ 40 MG VIAL IVP SCH ×5 (00:27→23:47)
[2019-06-10 08:16] LABS: Actual Bicarbonate (HCO3a) 20.9 mEq/L (22-28); Base Excess (BEa) -2.3 mEq/L (-2.0 to +3.0); Calcium, Ionized 1.18 mmol/L (1.12-1.30); Carboxyhemoglobin (COHb) 1.7 gm% (0.0-3.0); Hemoglobin (Hb) 11.3 g/dL (12.0-16.0); O2 Tension (PaO2) 66.4 mmHg (> 80.0); Potassium - ABG Lab 3.88 mmol/L (3.70-5.30); pH, Arterial 7.45 (7.35-7.45)
[2019-06-10 08:19] LABS: Puncture Site RBA
[2019-06-10 08:36] LABS: #Eosinphils 0.1 thou/uL (0.0-0.7); #Lymphocytes 0.6 thou/uL (1.20-3.40); #Monocytes 1.1 thou/uL (0.11-0.59); #Neutrophils 12.3 thou/uL (1.40-6.50); %Basophils 0.1 % (0.0-1.0); %Eosinophils 0.6 % (0.0-10.0); %Lymphocytes 3.9 % (21.0-51.0); %Monocytes 7.7 % (0.0-10.0); %Neutrophils 87.7 % (42.0-75.0); Hemoglobin 11.2 g/dL (12.0-16.0); Mean Corpuscular HGB CONC 33.2 g/dL (32.0-36.0); Mean Corpuscular Hemoglobin 31.1 pg (27.0-31.0); Mean Corpuscular Volume 93.6 fL (78.0-98.0); Mean Platelet Volume 7.3 fL (7.4-10.4); Platelet Count 318 thou/uL (130-400); RBC Distribution Width 14.2 % (11.5-14.5); Red Blood Cell (RBC) Count 3.61 mill/uL (4.20-5.40)
[2019-06-10 08:58] LABS: Anion Gap 14 mmol/L (10-20); BUN (Urea Nitrogen) 33 mg/dL (9.8-20.1); Calc. Creatinine Clearance 77 mL/min (70-130); Carbon Dioxide 20 mmol/L (23-31); Chloride 109 mmol/L (98-107); Estimated GFR-MDRD 69; Glucose 191 mg/dL (80-115); Potassium 3.8 mmol/L (3.5-5.1); Sodium 139 mmol/L (136-145)
[2019-06-10] MEDS: Vancomycin HCl 1 GM in Premix Bag 1 BAG IVPB SCH (09:07)
[2019-06-10] MEDS: Famotidine 20 MG TAB PO SCH ×2 (09:15→21:00)
[2019-06-10] MEDS: Meloxicam 7.5 MG TAB PO SCH (09:15)
[2019-06-10] MEDS ORDERED: Lorazepam 2 MG/ML VIAL SLOW IVP SCH (09:15)
[2019-06-10] MEDS: Aspirin 81 mg Enteric Coated Tablet PO SCH (09:15)
[2019-06-10] MEDS: Cefepime 1 GM in Sodium Chloride 0.9% 100 ML IVPB SCH ×2 (09:16→21:22)
[2019-06-10] MEDS: Bupropion 100 MG SR TAB PO SCH ×2 (09:16→21:00)
[2019-06-10] MEDS: Insulin Glargine 20 UNITS in Pre-Filled Syringe 1 EACH SC SCH (09:17)
[2019-06-10] MEDS: Lidocaine 5% Patch TD SCH (09:18)
[2019-06-10] MEDS: Fluticasone Propionate Nasal Spray 16 gm Bottle NASAL SCH (09:19)
[2019-06-10] MEDS: Anastrozole 1 MG TAB PO SCH (09:24)
[2019-06-10] MEDS ORDERED: Potassium Chloride 20 MEQ TAB PO SCH (14:30)
[2019-06-10] MEDS ORDERED: Furosemide 40 MG/4 ML VIAL SLOW IVP SCH (14:30)
--- NOTE | 2019-06-10 15:23 | PRG ---
DATE OF SERVICE: 06/10/2019 SERVICE: Pulmonary Medicine. HISTORY: The patient is doing okay from a respiratory standpoint. Her FiO2 requirements are ever so slightly improved. She is down to 48% FiO2 at this point. She is maintaining her decent saturations. That being said, with minimal activity, she does have desaturation events. There has been no other interval change to her condition. There were no significant fevers or events overnight. She has been a little bit more confused and got agitated. PHYSICAL EXAMINATION: VITAL SIGNS: Afebrile, pulse 87, blood pressure 149/89, respirations 15, saturation 93% on 48% FiO2 delivered via high-flow nasal cannula. HEENT: Normocephalic and atraumatic. Sclerae white. Conjunctivae pink. Oral mucosa is moist without lesions. LUNGS: Extensive crackles are present. There is no prolonged expiratory phase or wheezing. HEART: Normal rate and regular. ABDOMEN: Soft, nontender, nondistended. Bowel sounds are positive. MUSCULOSKELETAL: No cyanosis or clubbing. There is no pitting in the bilateral lower extremities. NEUROLOGIC: Grossly nonfocal. LABORATORY DATA: WBC 14.0, hemoglobin 11.2, and platelets 318,000. Neutrophil count is 88%. PH 7.45, pCO2 of 31, pO2 of 66 on 48% FiO2. Creatinine 0.82. Basic metabolic profile is otherwise unremarkable. Urinalysis was positive for glycosuria and nitrites, leukocyte esterase was minimal. That being said, there were very few white blood cells. Bacteria were noted. YURY screen is positive with an anti- U1RNP pattern. Rheumatoid factor was unremarkable. This occurred in 2016. HIV 1 and 2 and hepatitis serologies were previously unremarkable. E coli is growing in the urine, which is a pansensitive organism. ASSESSMENT: 1. Acute hypoxic respiratory failure. 2. Abnormal CT scan, characterized by interstitial opacifications, ground-glass changes, mosaic attenuation. 3. Urinary tract infection. 4. History of abnormal YURY. DISCUSSION AND PLAN: This patient has had a chronic progression in lung changes. We have detailed this on serial chest x-rays that dated back to 2013. I will continue her antibiotics and steroids. Pulmonary/Critical Care will continue to follow along while she remains in this location. Job ID: [id number] [facility]
[2019-06-10] MEDS: clonazePAM 0.5 MG TAB PO SCH (21:00)
[2019-06-10] MEDS ORDERED: Lorazepam 2 MG/ML VIAL SLOW IVP PRN (21:36)
--- NOTE | 2019-06-10 22:16 | PDOC.HOSPP ---
- Subjective Subjective: Much more confused today. Niece in the room today. Says she has had some hallucinating for a while. Nurse indicates she has not slept much. - Objective Vital Signs & Weight: Vital Signs (12 hours) Temp Pulse Resp Pulse Ox 06/10/19 19:23 97.0 F L 06/10/19 15:26 98.3 F 06/10/19 14:41 94 L 06/10/19 14:40 94 L 06/10/19 14:39 87 32 H 94 L 06/10/19 10:31 98.5 F Weight Weight 165 lb 12.602 oz Most Recent Monitor Data Heart Rate from ECG 102 NIBP 149/89 NIBP BP-Mean 109 Respiration from ECG 33 SpO2 94 I&O: 06/09/19 06/10/19 06/11/19 06:59 06:59 06:59 Intake Total 1200 Output Total 1975 Balance -775 Result Diagrams: 06/10/19 08:30 06/10/19 08:30 Additional Labs: Accuchecks 06/10/19 06/10/19 06/10/19 21:21 16:07 10:08 POC Glucose 151 H 144 H 316 H 06/10/19 05:36 POC Glucose 211 H ROS - Review of Systems All systems: All other ROS were reviewed and found negative. - Medication Medications: Active Medications Generic Name Dose Route Start Last Admin Trade Name Freq PRN Reason Stop Dose Admin Acetaminophen 1,000 mg 06/05/19 17:54 06/07/19 16:51 Tylenol PO 1,000 mg Q6H PRN Administration Mild Pain (1-3) Albuterol/Ipratropium 3 ml 06/10/19 19:00 06/10/19 19:17 Duoneb NEB Not Given [id number] BRAD Anastrozole 1 mg 06/07/19 09:00 06/10/19 09:24 Arimidex PO 1 mg DAILY BRAD Administration Aspirin 81 mg 06/06/19 09:00 06/10/19 09:15 Ecotrin PO 81 mg QAM BRAD Administration Bupropion HCl 200 mg 06/06/19 21:00 06/10/19 09:16 Wellbutrin Sr PO 200 mg BID BRAD Administration Famotidine 20 mg 06/05/19 21:00 06/10/19 09:15 Pepcid PO 20 mg BID BRAD Administration Fluticasone Propionate 0 gm 06/06/19 09:00 06/10/19 09:19 Flonase Nasal [place] NASAL Not Given DAILY [facility] Guaifenesin 200 mg 06/05/19 17:54 06/06/19 20:35 Robitussin Sf PO 200 mg Q4H PRN Administration Cough Levofloxacin 750 mg/ Device 150 mls @ 100 mls/hr 06/05/19 18:30 06/10/19 20: 55 IVPB Not Given Q24HR [facility] Insulin Glargine 20 units/ 0.2 mls @ 0 mls/hr 06/06/19 09:00 06/10/19 09:17 Miscellaneous Medication SC 0.2 mls QAM BRAD Administration Cefepime HCl 1 gm/ Sodium 100 mls @ 200 mls/hr 06/07/19 21:00 06/10/19 21:22 Chloride IVPB 100 mls Q12HR BRAD Administration Insulin Human Lispro 0 units 06/05/19 17:54 06/09/19 11:41 Humalog SC 8 unit .MODERATE SLIDING SC PRN Administration Moderate Correctional Scale Insulin Human Lispro 0 units 06/05/19 17:54 06/09/19 21:07 Humalog SC 5 unit .BEDTIME SLIDING SC PRN Administration Bedtime Correctional Scale Lidocaine 1 patch 06/06/19 09:00 06/10/19 09:18 Lidoderm 5% Patch TD Not Given DAILY [facility] Meloxicam 7.5 mg 06/06/19 09:00 06/10/19 09:15 Mobic PO 7.5 mg QAM [facility] Administration Methylprednisolone Sodium Succinate 40 mg 06/07/19 23:59 06/10/19 17:53 Solu-Medrol IVP 40 mg Q6HR BRAD Administration Ondansetron HCl 4 mg 06/05/19 17:54 06/07/19 16:51 Zofran Odt PO 4 mg Q6H PRN Administration Nausea/Vomiting Sodium Chloride 10 ml 06/05/19 21:00 06/10/19 09:19 Flush - Normal Saline IVF 10 ml Q12HR BRAD Administration Tramadol HCl 50 mg 06/05/19 23:05 06/07/19 10:08 Ultram PO 50 mg Q4H PRN Administration Moderate Pain (4-6) - Exam Heart: RRR, no murmur, no gallops, no rubs, normal peripheral pulses Respiratory: rales, wheezes Gastrointestinal: soft, non-tender, non-distended, normal bowel sounds, no palpable masses, no hepatomegaly, no splenomegaly, no bruit Extremities: no cyanosis, no clubbing, no edema Skin: normal turgor Neurological: no focal deficits Musculoskeletal: normal tone Psychiatric: not oriented (Modestly agitated.) Hosp A/P (1) Acute respiratory failure with hypoxia Code(s): J96.01 - ACUTE RESPIRATORY FAILURE WITH HYPOXIA Status: Acute (2) Bacterial pneumonia Code(s): J15.9 - UNSPECIFIED BACTERIAL PNEUMONIA Status: Acute (3) E. coli UTI Code(s): N39.0 - URINARY TRACT INFECTION, SITE NOT SPECIFIED; B96.20 - UNSP ESCHERICHIA COLI THE CAUSE OF DISEASES CLASSD ELSWHR Status: Acute (4) Multiple falls Code(s): R29.6 - REPEATED FALLS Status: Acute (5) DM2 (diabetes mellitus, type 2) Status: Chronic (6) HTN (hypertension) Code(s): I10 - ESSENTIAL (PRIMARY) HYPERTENSION Status: Chronic (7) Acute metabolic encephalopathy Code(s): G93.41 - METABOLIC ENCEPHALOPATHY Status: Acute - Plan Discussed with Dr. Madison. Reviewed CT. Pulm following. Continue Levaquin, Cefepime. Avoiding sedating meds due to current encephalopathy and fear of resp suppression. Steroids. High flow nasal canula.
[2019-06-11] MEDS ORDERED: Ziprasidone 20 MG VIAL IM PRN (01:08)
[2019-06-11] MEDS ORDERED: Sterile Water 10 ML VIAL FS PRN ×2 (01:10→01:15)
[2019-06-11] MEDS: HumaLOG 300 UNITS/3 ML VIAL SC PRN ×3 (06:59→23:05)
[2019-06-11] MEDS: methylPREDNISolone Sod Succ 40 MG VIAL IVP SCH ×4 (07:00→23:04)
[2019-06-11 07:45] LABS: Anion Gap 15 mmol/L (10-20); BUN (Urea Nitrogen) 31 mg/dL (9.8-20.1); Calc. Creatinine Clearance 77 mL/min (70-130); Calcium 9.3 mg/dL (7.8-10.44); Carbon Dioxide 23 mmol/L (23-31); Chloride 109 mmol/L (98-107); Estimated GFR-MDRD 69; Glucose 245 mg/dL (80-115); Magnesium 2.6 mg/dL (1.6-2.6); Potassium 4.5 mmol/L (3.5-5.1); Sodium 142 mmol/L (136-145)
[2019-06-11] MEDS ORDERED: Furosemide 20 MG/2 ML VIAL SLOW IVP SCH ×2 (09:00→10:30)
[2019-06-11] MEDS: Aspirin 81 mg Enteric Coated Tablet PO SCH (09:53)
[2019-06-11] MEDS: Meloxicam 7.5 MG TAB PO SCH (09:53)
[2019-06-11] MEDS: Bupropion 100 MG SR TAB PO SCH ×2 (09:53→20:19)
[2019-06-11] MEDS: Famotidine 20 MG TAB PO SCH ×2 (09:53→20:19)
[2019-06-11] MEDS: Anastrozole 1 MG TAB PO SCH (09:53)
[2019-06-11] MEDS: clonazePAM 0.5 MG TAB PO SCH ×2 (09:53→20:19)
[2019-06-11] MEDS: Fluticasone Propionate Nasal Spray 16 gm Bottle NASAL SCH (09:54)
[2019-06-11] MEDS: Insulin Glargine 20 UNITS in Pre-Filled Syringe 1 EACH SC SCH (09:55)
[2019-06-11] MEDS: Lidocaine 5% Patch TD SCH (09:55)
[2019-06-11] MEDS: Cefepime 1 GM in Sodium Chloride 0.9% 100 ML IVPB SCH ×2 (09:57→22:03)
--- NOTE | 2019-06-11 14:45 | PDOC.HOSPP ---
- Subjective Subjective: Has had persistent confusion and agitation. Calm and a little sleepy now. - Objective Vital Signs & Weight: Vital Signs (12 hours) Temp Pulse Pulse Pulse Pulse Resp BP 06/11/19 14:26 90 29 H 06/11/19 12:00 06/11/19 10:52 88 89 84 140/76 06/11/19 10:50 97.4 F L 06/11/19 07:50 06/11/19 07:46 06/11/19 07:15 97.8 F 06/11/19 07:13 92 37 H BP BP Pulse Ox Pulse Ox Pulse Ox Pulse Ox 06/11/19 14:26 93 L 06/11/19 12:00 93 L 06/11/19 10:52 134/102 H 149/97 H 94 L 95 93 L 06/11/19 10:50 06/11/19 07:50 98 06/11/19 07:46 92 L 06/11/19 07:15 06/11/19 07:13 92 L Weight Weight 165 lb 12.602 oz Most Recent Monitor Data Heart Rate from ECG 90 NIBP 132/85 NIBP BP-Mean 100 Respiration from ECG 16 SpO2 100 I&O: 06/10/19 06/11/19 06/12/19 06:59 06:59 06:59 Intake Total 360 Output Total 550 Balance -190 Result Diagrams: 06/10/19 08:30 06/11/19 07:00 Additional Labs: Accuchecks 06/11/19 06/11/19 06/10/19 10:05 06:49 21:21 POC Glucose 184 H 233 H 151 H 06/10/19 16:07 POC Glucose 144 H ROS - Review of Systems All systems: All other ROS were reviewed and found negative. - Medication Medications: Active Medications Generic Name Dose Route Start Last Admin Trade Name Freq PRN Reason Stop Dose Admin Acetaminophen 1,000 mg 06/05/19 17:54 06/07/19 16:51 Tylenol PO 1,000 mg Q6H PRN Administration Mild Pain (1-3) Albuterol/Ipratropium 3 ml 06/10/19 19:00 06/11/19 14:26 Duoneb NEB 3 ml [id number] BRAD Administration Anastrozole 1 mg 06/07/19 09:00 06/11/19 09:53 Arimidex PO 1 mg DAILY BRAD Administration Aspirin 81 mg 06/06/19 09:00 06/11/19 09:53 Ecotrin PO 81 mg QAM BRAD Administration Bupropion HCl 200 mg 06/06/19 21:00 06/11/19 09:53 Wellbutrin Sr PO 200 mg BID BRAD Administration Clonazepam 0.5 mg 06/10/19 21:00 06/11/19 09:53 Klonopin PO 0.5 mg BID BRAD Administration Famotidine 20 mg 06/05/19 21:00 06/11/19 09:53 Pepcid PO 20 mg BID BRAD Administration Fluticasone Propionate 0 gm 06/06/19 09:00 06/11/19 09:54 Flonase Nasal [place] NASAL 2 spr DAILY BRAD Administration Guaifenesin 200 mg 06/05/19 17:54 06/06/19 20:35 Robitussin Sf PO 200 mg Q4H PRN Administration Cough Levofloxacin 750 mg/ Device 150 mls @ 100 mls/hr 06/05/19 18:30 06/10/19 20: 55 IVPB Not Given Q24HR [facility] Insulin Glargine 20 units/ 0.2 mls @ 0 mls/hr 06/06/19 09:00 06/11/19 09:55 Miscellaneous Medication SC 0.2 mls QAM BRAD Administration Cefepime HCl 1 gm/ Sodium 100 mls @ 200 mls/hr 06/07/19 21:00 06/11/19 09:57 Chloride IVPB 100 mls Q12HR BRAD Administration Insulin Human Lispro 0 units 06/05/19 17:54 06/11/19 06:59 Humalog SC 4 unit .MODERATE SLIDING SC PRN Administration Moderate Correctional Scale Insulin Human Lispro 0 units 06/05/19 17:54 06/09/19 21:07 Humalog SC 5 unit .BEDTIME SLIDING SC PRN Administration Bedtime Correctional Scale Lidocaine 1 patch 06/06/19 09:00 06/11/19 09:55 Lidoderm 5% Patch TD 1 patch DAILY BRAD Administration Meloxicam 7.5 mg 06/06/19 09:00 06/11/19 09:53 Mobic PO 7.5 mg QAM BRAD Administration Methylprednisolone Sodium Succinate 40 mg 06/07/19 23:59 06/11/19 12:30 Solu-Medrol IVP 40 mg Q6HR BRAD Administration Ondansetron HCl 4 mg 06/05/19 17:54 06/07/19 16:51 Zofran Odt PO 4 mg Q6H PRN Administration Nausea/Vomiting Quetiapine Fumarate 25 mg 06/10/19 21:00 06/11/19 09:53 Seroquel PO 25 mg BID BRAD Administration Sodium Chloride 10 ml 06/05/19 21:00 06/11/19 09:57 Flush - Normal Saline IVF 10 ml Q12HR BRAD Administration Tramadol HCl 50 mg 06/05/19 23:05 06/07/19 10:08 Ultram PO 50 mg Q4H PRN Administration Moderate Pain (4-6) Ziprasidone 10 mg 06/11/19 01:08 06/11/19 01:25 Geodon IM 10 mg Q6H PRN Administration Agitation - Exam NAD Neck: supple, symmetric, no JVD, no Thyromegaly, no lymphadenopathy, no carotid bruit Heart: RRR, no murmur, no gallops, no rubs, normal peripheral pulses Respiratory: no wheezes, no ronchi, rales Gastrointestinal: soft, non-tender, non-distended, normal bowel sounds, no palpable masses, no hepatomegaly, no splenomegaly, no bruit Extremities: no cyanosis, no clubbing, no edema Skin: normal turgor Neurological: no focal deficits Musculoskeletal: normal tone, normal strength, no muscle wasting Psychiatric: not oriented Hosp A/P (1) Acute respiratory failure with hypoxia Code(s): J96.01 - ACUTE RESPIRATORY FAILURE WITH HYPOXIA Status: Acute (2) Bacterial pneumonia Code(s): J15.9 - UNSPECIFIED BACTERIAL PNEUMONIA Status: Acute (3) E. coli UTI Code(s): N39.0 - URINARY TRACT INFECTION, SITE NOT SPECIFIED; B96.20 - UNSP ESCHERICHIA COLI THE CAUSE OF DISEASES CLASSD ELSWHR Status: Acute (4) Multiple falls Code(s): R29.6 - REPEATED FALLS Status: Acute (5) DM2 (diabetes mellitus, type 2) Status: Chronic (6) HTN (hypertension) Code(s): I10 - ESSENTIAL (PRIMARY) HYPERTENSION Status: Chronic (7) Acute metabolic encephalopathy Code(s): G93.41 - METABOLIC ENCEPHALOPATHY Status: Acute - Plan Pulm following. Cefepime, Levaquin Steroids Nebs. High flow [place] oxygen. Echo without significant new pathology. Seroquel.
--- NOTE | 2019-06-11 17:21 | PRG ---
DATE OF SERVICE: 06/11/2019 SERVICE: Pulmonary Medicine. INTERVAL HISTORY: The patient is doing fine from respiratory standpoint. She got put in four-point restraints because of behavioral issues. She was quite aggressive with some staff yesterday evening. She is delirious. She really do not know where she is or what the situation is or why she is here. PHYSICAL EXAMINATION: VITAL SIGNS: Afebrile. Pulse 90, blood pressure 132/85, respirations 29, saturation 93%. She has been successfully weaned down to 4 L nasal cannula. HEENT: Normocephalic and atraumatic. Sclerae white. Conjunctivae pink. Oral mucosa is moist without lesions. LUNGS: Decent air entry. Crackles and rhonchi have both improved a little bit today. There is not much of a prolonged expiratory phase or wheezing present. HEART: Normal rate and regular. ABDOMEN: Soft, nontender, nondistended. Bowel sounds are positive. MUSCULOSKELETAL: No cyanosis or clubbing. No pitting in the bilateral lower extremities. NEUROLOGIC: Grossly nonfocal. LABORATORY DATA: WBC is improved to 14.0, hemoglobin 11.2, and platelets 318, 000. Basic metabolic profile is otherwise unremarkable. Magnesium is 2.6. Bicarb is stable at 23, BUN is actually downtrending to 31. HIV is nonreactive. Urine culture is growing pansensitive Escherichia coli. Blood culture x1 is negative. IMAGING STUDIES: Echocardiogram demonstrates normal ejection fraction with 1/3 diastolic dysfunction. No significant valvular abnormalities are identified. ASSESSMENT: 1. Acute hypoxic respiratory failure, improving. 2. Abnormal CT scan, characterized by interstitial opacifications, ground-glass changes, and mosaic attenuation. 3. Acute on chronic diastolic heart failure. 4. Urinary tract infection secondary to Escherichia coli. 5. History of abnormal YURY. DISCUSSION AND PLAN: I do the believe the patient has chronic progressive interstitial lung disease. That being said, I think it has been acutely exacerbated by volume. That being said, I cannot exclude the possibility of inflammatory changes. I will continue steroids, and I will diurese the patient down to euvolemia. Pulmonary will continue to follow along in this location. Job ID: [id number] MTDD
[2019-06-12 04:59] LABS: Anion Gap 13 mmol/L (10-20); BUN (Urea Nitrogen) 31 mg/dL (9.8-20.1); Calc. Creatinine Clearance 79 mL/min (70-130); Calcium 8.9 mg/dL (7.8-10.44); Carbon Dioxide 25 mmol/L (23-31); Chloride 107 mmol/L (98-107); Estimated GFR-MDRD 71; Glucose 236 mg/dL (80-115); Potassium 4.3 mmol/L (3.5-5.1); Sodium 141 mmol/L (136-145)
[2019-06-12] MEDS: methylPREDNISolone Sod Succ 40 MG VIAL IVP SCH (05:16)
[2019-06-12] MEDS: HumaLOG 300 UNITS/3 ML VIAL SC PRN ×2 (06:44→12:23)
[2019-06-12] MEDS: Bupropion 100 MG SR TAB PO SCH ×2 (09:49→20:21)
[2019-06-12] MEDS: clonazePAM 0.5 MG TAB PO SCH ×2 (09:50→20:22)
[2019-06-12] MEDS: Famotidine 20 MG TAB PO SCH ×2 (09:50→20:22)
[2019-06-12] MEDS: Anastrozole 1 MG TAB PO SCH (09:50)
[2019-06-12] MEDS: Aspirin 81 mg Enteric Coated Tablet PO SCH (09:51)
[2019-06-12] MEDS: Meloxicam 7.5 MG TAB PO SCH (09:51)
[2019-06-12] MEDS: Lidocaine 5% Patch TD SCH (09:52)
[2019-06-12] MEDS: Cefepime 1 GM in Sodium Chloride 0.9% 100 ML IVPB SCH (09:52)
[2019-06-12] MEDS: Insulin Glargine 20 UNITS in Pre-Filled Syringe 1 EACH SC SCH (09:52)
[2019-06-12] MEDS: Fluticasone Propionate Nasal Spray 16 gm Bottle NASAL SCH (09:59)
[2019-06-12] MEDS ORDERED: Cefdinir 300 MG CAP PO SCH (10:00)
--- NOTE | 2019-06-12 11:37 | PRG ---
DATE OF SERVICE: 06/12/2019 SERVICE: Pulmonary Medicine. INTERVAL HISTORY: The patient is doing really well from respiratory standpoint. She is breathing comfortably. She has been weaned down to nasal cannula. Overnight, she got a little bit excitable. She pulled out her IV. After 7 attempts, another IV was established. She subsequently pulled that one out. Either way, she appears comfortable. She does not seem to be in any distress. She is cool, calm, and collected for the time being. Other than agitation, there were no significant issues overnight. PHYSICAL EXAMINATION: VITAL SIGNS: Afebrile, pulse 85, blood pressure 135/71, respirations 24, saturation 94% on 4 L nasal cannula. GENERAL: The patient is awake and alert, in no apparent distress. LUNGS: Decent air entry with no prolonged expiratory phase, wheezing, or crackles. HEART: Normal rate and regular. ABDOMEN: Soft, nontender, nondistended. Bowel sounds are positive. MUSCULOSKELETAL: No cyanosis or clubbing. No pitting in the bilateral lower extremities. NEUROLOGIC: Nonfocal. LABORATORY DATA: WBC 14.0, hemoglobin 11.2, and platelets 318,000. Creatinine 0.8. Basic metabolic profile is otherwise unremarkable. Pansensitive E. coli is growing in the urine. Blood cultures negative x1. ASSESSMENT: 1. Acute hypoxic respiratory failure, improving. 2. Acute on chronic diastolic heart failure, improving. 3. Interstitial lung disease, slowly progressing over several years with likely superimposed volume changes. 4. Urinary tract infection secondary to Escherichia coli. 5. Abnormal antinuclear antibody. DISCUSSION AND PLAN: The patient's oxygen requirements have been dramatically improved over the last 24 hours since initiating Lasix. At this point, she has been weaned down to 4 L nasal cannula and can be transitioned to the floor. She has lost her IV access. All antibiotics will be switched over to p.o. I will also switch her steroids over to p.o. We will see if we can get by without replacing the IV as this was a fairly traumatic event for the patient. Interventions to her will be minimized to decrease agitation and delirium. Hopefully, discontinuing steroids will improve her mental status as well. We will continue her Seroquel and Klonopin twice daily. If she remains agitated overnight, we may need to escalate the dose into tomorrow. Pulmonary will continue to follow. Ultimately, she will likely benefit from outpatient workup for the underlying interstitial process, identified for the last several years. Job ID: [id number]
--- NOTE | 2019-06-12 13:26 | PDOC.HOSPP ---
- Subjective Subjective: 68 y/o female, assisted living resident, with chronic back pain, DM, HTN, and others admitted with complaint of multiple falls as well as fever and hypoxia as noted by EMS. Further evaluation revealed right lower lobe infiltrate and UTI. patient later developed worsening SOB concverning for ARDS and was transfered to ICU. clinically improved. Now only on 4lpm of oxygen. Denied difficulty breathing, fever or change in bowel habit. - Objective Vital Signs & Weight: Vital Signs (12 hours) Temp Pulse Ox 06/12/19 11:41 98.2 F 06/12/19 08:05 94 L 06/12/19 08:00 97.9 F 06/12/19 07:14 95 06/12/19 03:23 97.2 F L Weight Weight 165 lb 12.602 oz Most Recent Monitor Data Heart Rate from ECG 85 NIBP 135/71 NIBP BP-Mean 92 Respiration from ECG 24 SpO2 87 I&O: 06/11/19 06/12/19 06/13/19 06:59 06:59 06:59 Intake Total 360 1134 Output Total 550 1650 Balance -190 -516 Result Diagrams: 06/10/19 08:30 06/12/19 04:25 Additional Labs: Accuchecks 06/12/19 06/12/19 06/11/19 11:03 05:36 20:21 POC Glucose 153 H 245 H 300 H 06/11/19 16:13 POC Glucose 261 H ROS - Review of Systems All systems: All other ROS were reviewed and found negative. - Medication Medications: Active Medications Generic Name Dose Route Start Last Admin Trade Name Freq PRN Reason Stop Dose Admin Acetaminophen 1,000 mg 06/05/19 17:54 06/07/19 16:51 Tylenol PO 1,000 mg Q6H PRN Administration Mild Pain (1-3) Albuterol/Ipratropium 3 ml 06/10/19 19:00 06/12/19 12:44 Duoneb NEB Not Given [id number] BRAD Anastrozole 1 mg 06/07/19 09:00 06/12/19 09:50 Arimidex PO 1 mg DAILY BRAD Administration Aspirin 81 mg 06/06/19 09:00 06/12/19 09:51 Ecotrin PO 81 mg QAM BRAD Administration Bupropion HCl 200 mg 06/06/19 21:00 06/12/19 09:49 Wellbutrin Sr PO 200 mg BID BRAD Administration Clonazepam 0.5 mg 06/10/19 21:00 06/12/19 09:50 Klonopin PO 0.5 mg BID BRAD Administration Famotidine 20 mg 06/05/19 21:00 06/12/19 09:50 Pepcid PO 20 mg BID BRAD Administration Fluticasone Propionate 0 gm 06/06/19 09:00 06/12/19 09:59 Flonase Nasal [place] NASAL 2 spr DAILY BRAD Administration Guaifenesin 200 mg 06/05/19 17:54 06/06/19 20:35 Robitussin Sf PO 200 mg Q4H PRN Administration Cough Insulin Glargine 20 units/ 0.2 mls @ 0 mls/hr 06/06/19 09:00 06/12/19 09:52 Miscellaneous Medication SC 0.2 mls QAM BRAD Administration Insulin Human Lispro 0 units 06/05/19 17:54 06/12/19 12:23 Humalog SC 2 unit .MODERATE SLIDING SC PRN Administration Moderate Correctional Scale Insulin Human Lispro 0 units 06/05/19 17:54 06/09/19 21:07 Humalog SC 5 unit .BEDTIME SLIDING SC PRN Administration Bedtime Correctional Scale Lidocaine 1 patch 06/06/19 09:00 06/12/19 09:52 Lidoderm 5% Patch TD 1 patch DAILY BRAD Administration Meloxicam 7.5 mg 06/06/19 09:00 06/12/19 09:51 Mobic PO 7.5 mg QAM BRAD Administration Ondansetron HCl 4 mg 06/05/19 17:54 06/07/19 16:51 Zofran Odt PO 4 mg Q6H PRN Administration Nausea/Vomiting Quetiapine Fumarate 25 mg 06/10/19 21:00 06/12/19 09:50 Seroquel PO 25 mg BID BRAD Administration Tramadol HCl 50 mg 06/05/19 23:05 06/07/19 10:08 Ultram PO 50 mg Q4H PRN Administration Moderate Pain (4-6) Ziprasidone 10 mg 06/11/19 01:08 06/11/19 01:25 Geodon IM 10 mg Q6H PRN Administration Agitation - Exam awake alert Eye: PERRL, anicteric sclera ENT: normocephalic atraumatic Neck: supple, symmetric, no JVD Heart: RRR, murmur present (soft systolic murmur noted) Respiratory: no wheezes, no rales (Fair air entry bilaterally with few transmitted sound) Gastrointestinal: soft, non-tender, non-distended, normal bowel sounds Extremities: no cyanosis, no clubbing, no edema Neurological: CN's grossly intact, no focal deficits Hosp A/P (1) Acute metabolic encephalopathy Code(s): G93.41 - METABOLIC ENCEPHALOPATHY Status: Acute (2) Acute respiratory failure with hypoxia Code(s): J96.01 - ACUTE RESPIRATORY FAILURE WITH HYPOXIA Status: Acute (3) Bacterial pneumonia Code(s): J15.9 - UNSPECIFIED BACTERIAL PNEUMONIA Status: Acute (4) E. coli UTI Code(s): N39.0 - URINARY TRACT INFECTION, SITE NOT SPECIFIED; B96.20 - UNSP ESCHERICHIA COLI THE CAUSE OF DISEASES CLASSD ELSWHR Status: Acute (5) Multiple falls Code(s): R29.6 - REPEATED FALLS Status: Acute (6) Sepsis Code(s): A41.9 - SEPSIS, UNSPECIFIED ORGANISM Status: Acute (7) DM2 (diabetes mellitus, type 2) Status: Chronic (8) HTN (hypertension) Code(s): I10 - ESSENTIAL (PRIMARY) HYPERTENSION Status: Chronic (9) Physical deconditioning Code(s): R53.81 - OTHER MALAISE Status: Acute (10) Hyponatremia Code(s): E87.1 - HYPO-OSMOLALITY AND HYPONATREMIA Status: Resolved (11) Acute on chronic diastolic (congestive) heart failure Code(s): I50.33 - ACUTE ON CHRONIC DIASTOLIC (CONGESTIVE) HEART FAILURE Status : Acute - Plan Continue current treatments Wean off oxygen as tolerataed. PT/Ot to continue.
[2019-06-13 06:13] LABS: #Eosinphils 0.9 thou/uL (0.0-0.7); #Lymphocytes 1.2 thou/uL (1.20-3.40); #Monocytes 0.8 thou/uL (0.11-0.59); #Neutrophils 6.6 thou/uL (1.40-6.50); %Basophils 0.3 % (0.0-1.0); %Eosinophils 9.9 % (0.0-10.0); %Lymphocytes 12.2 % (21.0-51.0); %Monocytes 8.5 % (0.0-10.0); %Neutrophils 69.2 % (42.0-75.0); Hemoglobin 11.3 g/dL (12.0-16.0); Mean Corpuscular HGB CONC 32.5 g/dL (32.0-36.0); Mean Corpuscular Hemoglobin 30.4 pg (27.0-31.0); Mean Corpuscular Volume 93.5 fL (78.0-98.0); Mean Platelet Volume 7.3 fL (7.4-10.4); Platelet Count 270 thou/uL (130-400); RBC Distribution Width 14.5 % (11.5-14.5); Red Blood Cell (RBC) Count 3.72 mill/uL (4.20-5.40); White Blood Cell (WBC) Count 9.5 thou/uL (4.8-10.8)
[2019-06-13 06:36] LABS: Anion Gap 12 mmol/L (10-20); BUN (Urea Nitrogen) 30 mg/dL (9.8-20.1); Calc. Creatinine Clearance 88 mL/min (70-130); Calcium 8.8 mg/dL (7.8-10.44); Carbon Dioxide 25 mmol/L (23-31); Chloride 108 mmol/L (98-107); Estimated GFR-MDRD 80; Glucose 115 mg/dL (80-115); Potassium 3.7 mmol/L (3.5-5.1); Sodium 141 mmol/L (136-145)
[2019-06-13] MEDS: Lidocaine 5% Patch TD SCH (08:59)
[2019-06-13] MEDS: Fluticasone Propionate Nasal Spray 16 gm Bottle NASAL SCH (08:59)
[2019-06-13] MEDS: predniSONE 20 MG TAB PO SCH (09:00)
[2019-06-13] MEDS: Bupropion 100 MG SR TAB PO SCH ×2 (09:00→20:17)
[2019-06-13] MEDS: Aspirin 81 mg Enteric Coated Tablet PO SCH (09:00)
[2019-06-13] MEDS: Cefdinir 300 MG CAP PO SCH (09:02)
[2019-06-13] MEDS: Meloxicam 7.5 MG TAB PO SCH (09:02)
[2019-06-13] MEDS: Anastrozole 1 MG TAB PO SCH (09:03)
[2019-06-13] MEDS: Famotidine 20 MG TAB PO SCH ×2 (09:04→20:17)
[2019-06-13] MEDS: Insulin Glargine 20 UNITS in Pre-Filled Syringe 1 EACH SC SCH (09:04)
[2019-06-13] MEDS: clonazePAM 0.5 MG TAB PO SCH ×2 (09:04→20:17)
--- NOTE | 2019-06-13 12:01 | PDOC.HOSPP ---
- Subjective Subjective: 68 y/o female, independent living resident, with chronic back pain, DM, HTN, and others admitted with complaint of multiple falls as well as fever and hypoxia noted by EMS. Further evaluation revealed right lower lobe infiltrate and UTI. Patient later developed worsening SOB concerning for ARDS and was transfered to ICU. Treated with escalation of antibiotic, steroid, bronchodilators and oxygen with improvement. Denied difficulty breathing, fever or change in bowel habit. - Objective Vital Signs & Weight: Vital Signs (12 hours) Temp Pulse Resp BP BP Pulse Ox 06/13/19 08:00 96 06/13/19 07:18 86 16 96 06/13/19 07:00 98.2 F 86 20 121/74 92 L 06/13/19 04:00 97.9 F 82 18 113/74 95 06/13/19 00:46 98 14 95 06/13/19 00:00 98.1 F 83 18 118/74 93 L Weight Weight 165 lb 12.602 oz Most Recent Monitor Data Heart Rate from ECG 85 NIBP 135/71 NIBP BP-Mean 92 Respiration from ECG 24 SpO2 87 I&O: 06/12/19 06/13/19 06/14/19 06:59 06:59 06:59 Intake Total 1134 1310 Output Total 1650 Balance -516 1310 Result Diagrams: 06/13/19 05:32 06/13/19 05:32 Additional Labs: Accuchecks 06/13/19 06/12/19 06/12/19 04:25 19:31 16:44 POC Glucose 117 H 133 H 108 ROS - Review of Systems All systems: All other ROS were reviewed and found negative. - Medication Medications: Active Medications Generic Name Dose Route Start Last Admin Trade Name Freq PRN Reason Stop Dose Admin Acetaminophen 1,000 mg 06/05/19 17:54 06/07/19 16:51 Tylenol PO 1,000 mg Q6H PRN Administration Mild Pain (1-3) Albuterol/Ipratropium 3 ml 06/10/19 19:00 06/13/19 07:18 Duoneb NEB 3 ml [id number] BRAD Administration Anastrozole 1 mg 06/07/19 09:00 06/13/19 09:03 Arimidex PO 1 mg DAILY BRAD Administration Aspirin 81 mg 06/06/19 09:00 06/13/19 09:00 Ecotrin PO 81 mg QAM BRAD Administration Bupropion HCl 200 mg 06/06/19 21:00 06/13/19 09:00 Wellbutrin Sr PO 200 mg BID BRAD Administration Cefdinir 600 mg 06/13/19 09:00 06/13/19 09:02 Omnicef PO 06/14/19 09:01 600 mg DAILY BRAD Administration Clonazepam 0.5 mg 06/10/19 21:00 06/13/19 09:04 Klonopin PO 0.5 mg BID BRAD Administration Famotidine 20 mg 06/05/19 21:00 06/13/19 09:04 Pepcid PO 20 mg BID BRAD Administration Fluticasone Propionate 0 gm 06/06/19 09:00 06/13/19 08:59 Flonase Nasal [place] NASAL 2 spr DAILY BRAD Administration Guaifenesin 200 mg 06/05/19 17:54 06/06/19 20:35 Robitussin Sf PO 200 mg Q4H PRN Administration Cough Insulin Glargine 20 units/ 0.2 mls @ 0 mls/hr 06/06/19 09:00 06/13/19 09:04 Miscellaneous Medication SC 0.2 mls QAM BRAD Administration Insulin Human Lispro 0 units 06/05/19 17:54 06/12/19 12:23 Humalog SC 2 unit .MODERATE SLIDING SC PRN Administration Moderate Correctional Scale Insulin Human Lispro 0 units 06/05/19 17:54 06/09/19 21:07 Humalog SC 5 unit .BEDTIME SLIDING SC PRN Administration Bedtime Correctional Scale Levofloxacin 750 mg 06/13/19 06:00 06/13/19 05:29 Levaquin PO 06/14/19 06:01 750 mg 0600 BRAD Administration Lidocaine 1 patch 06/06/19 09:00 06/13/19 08:59 Lidoderm 5% Patch TD 1 patch DAILY BRAD Administration Meloxicam 7.5 mg 06/06/19 09:00 06/13/19 09:02 Mobic PO 7.5 mg QAM BRAD Administration Ondansetron HCl 4 mg 06/05/19 17:54 06/07/19 16:51 Zofran Odt PO 4 mg Q6H PRN Administration Nausea/Vomiting Prednisone 40 mg 06/13/19 08:00 06/13/19 09:00 Prednisone PO 06/18/19 08:01 40 mg QAM-WM BRAD Administration Quetiapine Fumarate 25 mg 06/10/19 21:00 06/13/19 09:00 Seroquel PO 25 mg BID BRAD Administration Tramadol HCl 50 mg 06/05/19 23:05 06/07/19 10:08 Ultram PO 50 mg Q4H PRN Administration Moderate Pain (4-6) Ziprasidone 10 mg 06/11/19 01:08 06/11/19 01:25 Geodon IM 10 mg Q6H PRN Administration Agitation - Exam NAD, awake alert Eye: anicteric sclera ENT: normocephalic atraumatic Neck: supple, symmetric, no JVD Heart: RRR Respiratory: CTAB, no wheezes, no rales, no ronchi Gastrointestinal: soft, non-tender, non-distended, normal bowel sounds Extremities: no cyanosis, no edema Neurological: CN's grossly intact, no focal deficits Psychiatric: normal affect, A&O x 3 Hosp A/P (1) Acute respiratory failure with hypoxia Code(s): J96.01 - ACUTE RESPIRATORY FAILURE WITH HYPOXIA Status: Acute (2) Acute metabolic encephalopathy Code(s): G93.41 - METABOLIC ENCEPHALOPATHY Status: Acute (3) Bacterial pneumonia Code(s): J15.9 - UNSPECIFIED BACTERIAL PNEUMONIA Status: Acute (4) E. coli UTI Code(s): N39.0 - URINARY TRACT INFECTION, SITE NOT SPECIFIED; B96.20 - UNSP ESCHERICHIA COLI THE CAUSE OF DISEASES CLASSD ELSWHR Status: Acute (5) Multiple falls Code(s): R29.6 - REPEATED FALLS Status: Acute (6) Sepsis Code(s): A41.9 - SEPSIS, UNSPECIFIED ORGANISM Status: Acute (7) DM2 (diabetes mellitus, type 2) Status: Chronic (8) HTN (hypertension) Code(s): I10 - ESSENTIAL (PRIMARY) HYPERTENSION Status: Chronic (9) Physical deconditioning Code(s): R53.81 - OTHER MALAISE Status: Acute (10) Hyponatremia Code(s): E87.1 - HYPO-OSMOLALITY AND HYPONATREMIA Status: Resolved (11) Acute on chronic diastolic (congestive) heart failure Code(s): I50.33 - ACUTE ON CHRONIC DIASTOLIC (CONGESTIVE) HEART FAILURE Status : Acute (12) Interstitial lung disease Code(s): J84.9 - INTERSTITIAL PULMONARY DISEASE, UNSPECIFIED Status: Acute - Plan Wean oxygen as tolerated. Continue antibiotics, steroid and bronchodilators Consult PT?OT. Will benefit from acute rehabilitation.
[2019-06-13] MEDS: HumaLOG 300 UNITS/3 ML VIAL SC PRN ×2 (15:46→20:18)
--- NOTE | 2019-06-13 16:07 | PRG ---
DATE OF SERVICE: 06/13/2019 SERVICE: Pulmonary Medicine. INTERVAL HISTORY: The patient is doing fairly well from a Respiratory standpoint. She denies any fevers, chills, cough, sputum production, nausea, or vomiting. Otherwise, there has been no interval change to her condition. PHYSICAL EXAMINATION: VITAL SIGNS: Afebrile, pulse 92, blood pressure 102/57, respirations 20, and saturation 96% on 4 L nasal cannula. GENERAL: The patient is awake and alert, in no apparent distress. LUNGS: Very good air entry. Crackles are present. There is no prolonged expiratory phase or wheezing appreciated. HEART: Normal rate and regular. ABDOMEN: Soft, nontender, nondistended. Bowel sounds are positive. MUSCULOSKELETAL: No cyanosis or clubbing. No pitting in the bilateral lower extremities. NEUROLOGIC: Grossly nonfocal. LABORATORY DATA: WBC 9.5, hemoglobin 11.3, platelets 270,000. Basic metabolic profile is otherwise unremarkable. Urine culture is growing E. coli. ASSESSMENT: 1. Acute hypoxic respiratory failure. 2. Acute on chronic diastolic heart failure. 3. Interstitial lung disease, slowly progressing over several years with possible superimposed volume changes. 4. Urinary tract infection secondary to Escherichia coli. 5. Abnormal antinuclear antibody. DISCUSSION AND PLAN: From a purely respiratory perspective, the patient is stable for transition out of the hospital. She has no further requirements for inpatient Pulmonary Critical Care opinion, and I will sign off. Please call with additional questions or concerns through time. She needs to follow up with me in the outpatient setting. I had a very long conversation with her today regarding progressive interstitial lung disease. I do believe that she would benefit from a diagnostic workup in the outpatient setting. She will likely need to be seeing Rheumatology to which I can coordinate when she visits with me in clinic. Job ID: [id number]
[2019-06-13] MEDS: Acetaminophen 500 MG TAB PO PRN (20:17)
[2019-06-13] MEDS: Lidocaine Patch Removal 1 EACH TOP SCH (20:18)
[2019-06-14] MEDS: predniSONE 20 MG TAB PO SCH (09:22)
[2019-06-14] MEDS: Cefdinir 300 MG CAP PO SCH (09:22)
[2019-06-14] MEDS: Meloxicam 7.5 MG TAB PO SCH (09:22)
[2019-06-14] MEDS: clonazePAM 0.5 MG TAB PO SCH ×2 (09:22→20:42)
[2019-06-14] MEDS: Anastrozole 1 MG TAB PO SCH (09:22)
[2019-06-14] MEDS: Aspirin 81 mg Enteric Coated Tablet PO SCH (09:23)
[2019-06-14] MEDS: Bupropion 100 MG SR TAB PO SCH ×2 (09:23→20:42)
[2019-06-14] MEDS: Famotidine 20 MG TAB PO SCH ×2 (09:23→20:42)
[2019-06-14] MEDS: Insulin Glargine 20 UNITS in Pre-Filled Syringe 1 EACH SC SCH (09:24)
[2019-06-14] MEDS: Lidocaine 5% Patch TD SCH (09:25)
[2019-06-14] MEDS: Fluticasone Propionate Nasal Spray 16 gm Bottle NASAL SCH (09:27)
[2019-06-14] MEDS: HumaLOG 300 UNITS/3 ML VIAL SC PRN ×3 (12:39→20:42)
--- NOTE | 2019-06-14 12:59 | PDOC.HOSPP ---
- Subjective Subjective: Patient seen and examined, no new issues. - Objective Vital Signs & Weight: Vital Signs (12 hours) Temp Pulse Resp BP Pulse Ox 06/14/19 12:20 98.0 F 92 18 118/76 96 06/14/19 08:00 97.9 F 86 20 135/79 94 L 06/14/19 06:46 98 06/14/19 06:43 79 16 06/14/19 04:00 97.8 F 82 20 129/70 94 L Weight Weight 165 lb 12.602 oz Most Recent Monitor Data Heart Rate from ECG 85 NIBP 135/71 NIBP BP-Mean 92 Respiration from ECG 24 SpO2 87 I&O: 06/13/19 06/14/19 06/15/19 06:59 06:59 06:59 Intake Total 1310 200 Balance 1310 200 Result Diagrams: 06/13/19 05:32 06/13/19 05:32 Additional Labs: Accuchecks 06/14/19 06/14/19 06/13/19 11:56 05:29 19:35 POC Glucose 222 H 168 H 283 H ROS - Review of Systems All systems: All other ROS were reviewed and found negative. - Medication Medications: Active Medications Generic Name Dose Route Start Last Admin Trade Name Freq PRN Reason Stop Dose Admin Acetaminophen 1,000 mg 06/05/19 17:54 06/13/19 20:17 Tylenol PO 1,000 mg Q6H PRN Administration Mild Pain (1-3) Albuterol/Ipratropium 3 ml 06/10/19 19:00 06/14/19 06:43 Duoneb NEB 3 ml [id number] BRAD Administration Anastrozole 1 mg 06/07/19 09:00 06/14/19 09:22 Arimidex PO 1 mg DAILY BRAD Administration Aspirin 81 mg 06/06/19 09:00 06/14/19 09:23 Ecotrin PO 81 mg QAM BRAD Administration Bupropion HCl 200 mg 06/06/19 21:00 06/14/19 09:23 Wellbutrin Sr PO 200 mg BID BRAD Administration Clonazepam 0.5 mg 06/10/19 21:00 06/14/19 09:22 Klonopin PO 0.5 mg BID BRAD Administration Famotidine 20 mg 06/05/19 21:00 06/14/19 09:23 Pepcid PO 20 mg BID BRAD Administration Fluticasone Propionate 0 gm 06/06/19 09:00 06/14/19 09:27 Flonase Nasal [place] NASAL 1 spr DAILY BRAD Administration Guaifenesin 200 mg 06/05/19 17:54 06/06/19 20:35 Robitussin Sf PO 200 mg Q4H PRN Administration Cough Insulin Glargine 20 units/ 0.2 mls @ 0 mls/hr 06/06/19 09:00 06/14/19 09:24 Miscellaneous Medication SC 0.2 mls QAM BRAD Administration Insulin Human Lispro 0 units 06/05/19 17:54 06/14/19 12:39 Humalog SC 4 unit .MODERATE SLIDING SC PRN Administration Moderate Correctional Scale Insulin Human Lispro 0 units 06/05/19 17:54 06/13/19 20:18 Humalog SC 3 unit .BEDTIME SLIDING SC PRN Administration Bedtime Correctional Scale Lidocaine 1 patch 06/06/19 09:00 06/14/19 09:25 Lidoderm 5% Patch TD 1 patch DAILY BRAD Administration Meloxicam 7.5 mg 06/06/19 09:00 06/14/19 09:22 Mobic PO 7.5 mg QAM BRAD Administration Miscellaneous Medication 1 each 06/13/19 21:00 06/13/19 20:18 Lidocaine Patch Removal TOP 1 each 2100 BRAD Administration Ondansetron HCl 4 mg 06/05/19 17:54 06/07/19 16:51 Zofran Odt PO 4 mg Q6H PRN Administration Nausea/Vomiting Prednisone 40 mg 06/13/19 08:00 06/14/19 09:22 Prednisone PO 06/18/19 08:01 40 mg QAM-WM BRAD Administration Quetiapine Fumarate 25 mg 06/10/19 21:00 06/14/19 09:23 Seroquel PO 25 mg BID BRAD Administration Tramadol HCl 50 mg 06/05/19 23:05 06/07/19 10:08 Ultram PO 50 mg Q4H PRN Administration Moderate Pain (4-6) Ziprasidone 10 mg 06/11/19 01:08 06/11/19 01:25 Geodon IM 10 mg Q6H PRN Administration Agitation - Exam NAD, awake alert Eye: PERRL, anicteric sclera ENT: normocephalic atraumatic, no oropharyngeal lesions Neck: supple, symmetric, no JVD Heart: RRR, no murmur, no gallops Respiratory: CTAB, no wheezes, no rales Gastrointestinal: soft, non-tender, non-distended Extremities: no cyanosis, no clubbing Neurological: CN's grossly intact Hosp A/P (1) Acute on chronic diastolic (congestive) heart failure Code(s): I50.33 - ACUTE ON CHRONIC DIASTOLIC (CONGESTIVE) HEART FAILURE Status : Acute (2) Acute respiratory failure with hypoxia Code(s): J96.01 - ACUTE RESPIRATORY FAILURE WITH HYPOXIA Status: Acute (3) E. coli UTI Code(s): N39.0 - URINARY TRACT INFECTION, SITE NOT SPECIFIED; B96.20 - UNSP ESCHERICHIA COLI THE CAUSE OF DISEASES CLASSD ELSWHR Status: Acute (4) Interstitial lung disease Code(s): J84.9 - INTERSTITIAL PULMONARY DISEASE, UNSPECIFIED Status: Acute (5) Physical deconditioning Code(s): R53.81 - OTHER MALAISE Status: Acute (6) DM2 (diabetes mellitus, type 2) Status: Chronic (7) HTN (hypertension) Code(s): I10 - ESSENTIAL (PRIMARY) HYPERTENSION Status: Chronic - Plan - cont current plan of care - pending rehab - DC once arranged
[2019-06-14] MEDS: Acetaminophen 500 MG TAB PO PRN (16:03)
[2019-06-14] MEDS: Lidocaine Patch Removal 1 EACH TOP SCH (20:47)
[2019-06-15] MEDS: traMADol HCl 50 MG TAB PO PRN (04:30)
[2019-06-15] MEDS: Meloxicam 7.5 MG TAB PO SCH (09:23)
[2019-06-15] MEDS: clonazePAM 0.5 MG TAB PO SCH ×2 (09:23→20:42)
[2019-06-15] MEDS: Bupropion 100 MG SR TAB PO SCH ×2 (09:23→20:42)
[2019-06-15] MEDS: Anastrozole 1 MG TAB PO SCH (09:24)
[2019-06-15] MEDS: Famotidine 20 MG TAB PO SCH ×2 (09:24→20:42)
[2019-06-15] MEDS: predniSONE 20 MG TAB PO SCH (09:24)
--- NOTE | 2019-06-15 09:31 | PDOC.HOSPP ---
- Subjective Subjective: Patient seen and examined, no new issues. - Objective Vital Signs & Weight: Vital Signs (12 hours) Temp Pulse Resp BP Pulse Ox 06/15/19 07:36 98.5 F 89 18 135/71 95 06/15/19 06:43 91 16 06/15/19 04:00 98.0 F 90 20 130/77 92 L 06/15/19 01:04 83 16 93 L Weight Weight 165 lb 12.602 oz Most Recent Monitor Data Heart Rate from ECG 85 NIBP 135/71 NIBP BP-Mean 92 Respiration from ECG 24 SpO2 87 I&O: 06/14/19 06/15/19 06/16/19 06:59 06:59 06:59 Intake Total 200 Balance 200 Result Diagrams: 06/13/19 05:32 06/13/19 05:32 Additional Labs: Accuchecks 06/15/19 06/14/19 06/14/19 04:26 19:32 16:31 POC Glucose 185 H 222 H 288 H 06/14/19 11:56 POC Glucose 222 H ROS - Review of Systems All systems: All other ROS were reviewed and found negative. - Medication Medications: Active Medications Generic Name Dose Route Start Last Admin Trade Name Freq PRN Reason Stop Dose Admin Acetaminophen 1,000 mg 06/05/19 17:54 06/14/19 16:03 Tylenol PO 1,000 mg Q6H PRN Administration Mild Pain (1-3) Albuterol/Ipratropium 3 ml 06/10/19 19:00 06/15/19 06:43 Duoneb NEB 3 ml [id number] BRAD Administration Anastrozole 1 mg 06/07/19 09:00 06/14/19 09:22 Arimidex PO 1 mg DAILY BRAD Administration Aspirin 81 mg 06/06/19 09:00 06/14/19 09:23 Ecotrin PO 81 mg QAM BRAD Administration Bupropion HCl 200 mg 06/06/19 21:00 06/14/19 20:42 Wellbutrin Sr PO 200 mg BID BRAD Administration Clonazepam 0.5 mg 06/10/19 21:00 06/14/19 20:42 Klonopin PO 0.5 mg BID BRAD Administration Famotidine 20 mg 06/05/19 21:00 06/14/19 20:42 Pepcid PO 20 mg BID BRAD Administration Fluticasone Propionate 0 gm 07/26/19 09:00 06/14/19 09:27 Flonase Nasal [place] NASAL 1 spr DAILY BRAD Administration Guaifenesin 200 mg 06/05/19 17:54 06/06/19 20:35 Robitussin Sf PO 200 mg Q4H PRN Administration Cough Insulin Glargine 20 units/ 0.2 mls @ 0 mls/hr 06/06/19 09:00 06/14/19 09:24 Miscellaneous Medication SC 0.2 mls QAM BRAD Administration Insulin Human Lispro 0 units 06/05/19 17:54 06/14/19 17:24 Humalog SC 6 unit .MODERATE SLIDING SC PRN Administration Moderate Correctional Scale Insulin Human Lispro 0 units 06/05/19 17:54 06/14/19 20:42 Humalog SC 2 unit .BEDTIME SLIDING SC PRN Administration Bedtime Correctional Scale Lidocaine 1 patch 06/06/19 09:00 06/14/19 09:25 Lidoderm 5% Patch TD 1 patch DAILY BRAD Administration Meloxicam 7.5 mg 06/06/19 09:00 06/14/19 09:22 Mobic PO 7.5 mg QAM BRAD Administration Miscellaneous Medication 1 each 06/13/19 21:00 06/14/19 20:47 Lidocaine Patch Removal TOP Not Given 2100 BRAD Ondansetron HCl 4 mg 06/05/19 17:54 06/07/19 16:51 Zofran Odt PO 4 mg Q6H PRN Administration Nausea/Vomiting Prednisone 40 mg 06/13/19 08:00 06/14/19 09:22 Prednisone PO 06/18/19 08:01 40 mg QAM-WM BRAD Administration Quetiapine Fumarate 25 mg 06/10/19 21:00 06/14/19 20:42 Seroquel PO 25 mg BID BRAD Administration Tramadol HCl 50 mg 06/05/19 23:05 06/15/19 04:30 Ultram PO 50 mg Q4H PRN Administration Moderate Pain (4-6) Ziprasidone 10 mg 06/11/19 01:08 06/11/19 01:25 Geodon IM 10 mg Q6H PRN Administration Agitation - Exam NAD, awake alert Eye: PERRL, anicteric sclera ENT: normocephalic atraumatic, no oropharyngeal lesions Neck: supple, symmetric, no JVD Heart: RRR, no murmur, no gallops Respiratory: CTAB, no wheezes Gastrointestinal: soft, non-tender Hosp A/P (1) Acute on chronic diastolic (congestive) heart failure Code(s): I50.33 - ACUTE ON CHRONIC DIASTOLIC (CONGESTIVE) HEART FAILURE Status : Acute (2) Acute respiratory failure with hypoxia Code(s): J96.01 - ACUTE RESPIRATORY FAILURE WITH HYPOXIA Status: Acute (3) E. coli UTI Code(s): N39.0 - URINARY TRACT INFECTION, SITE NOT SPECIFIED; B96.20 - UNSP ESCHERICHIA COLI THE CAUSE OF DISEASES CLASSD ELSWHR Status: Acute (4) Interstitial lung disease Code(s): J84.9 - INTERSTITIAL PULMONARY DISEASE, UNSPECIFIED Status: Acute (5) Physical deconditioning Code(s): R53.81 - OTHER MALAISE Status: Acute (6) DM2 (diabetes mellitus, type 2) Status: Chronic (7) HTN (hypertension) Code(s): I10 - ESSENTIAL (PRIMARY) HYPERTENSION Status: Chronic - Plan - pending rehab - cont current plan of care - vitals stable - labs in AM - DC once rehab arrangements made
[2019-06-15] MEDS: Fluticasone Propionate Nasal Spray 16 gm Bottle NASAL SCH (09:32)
[2019-06-15] MEDS: Aspirin 81 mg Enteric Coated Tablet PO SCH (09:32)
[2019-06-15] MEDS: Insulin Glargine 20 UNITS in Pre-Filled Syringe 1 EACH SC SCH (09:36)
[2019-06-15] MEDS: Lidocaine 5% Patch TD SCH (09:37)
[2019-06-15] MEDS: HumaLOG 300 UNITS/3 ML VIAL SC PRN ×3 (12:21→20:42)
[2019-06-15] MEDS: Lidocaine Patch Removal 1 EACH TOP SCH (20:43)
[2019-06-16 06:28] LABS: #Eosinphils 0.3 thou/uL (0.0-0.7); #Lymphocytes 1.1 thou/uL (1.20-3.40); #Monocytes 0.9 thou/uL (0.11-0.59); #Neutrophils 7.8 thou/uL (1.40-6.50); %Basophils 0.2 % (0.0-1.0); %Eosinophils 3.5 % (0.0-10.0); %Lymphocytes 10.6 % (21.0-51.0); %Monocytes 8.7 % (0.0-10.0); %Neutrophils 77.1 % (42.0-75.0); Hemoglobin 11.5 g/dL (12.0-16.0); Mean Corpuscular HGB CONC 34.7 g/dL (32.0-36.0); Mean Corpuscular Volume 95.1 fL (78.0-98.0); Mean Platelet Volume 8.2 fL (7.4-10.4); Platelet Count 201 thou/uL (130-400); RBC Distribution Width 14.2 % (11.5-14.5); White Blood Cell (WBC) Count 10.1 thou/uL (4.8-10.8)
[2019-06-16 06:45] LABS: Anion Gap 10 mmol/L (10-20); BUN (Urea Nitrogen) 20 mg/dL (9.8-20.1); Calc. Creatinine Clearance 88 mL/min (70-130); Calcium 9.3 mg/dL (7.8-10.44); Carbon Dioxide 28 mmol/L (23-31); Chloride 107 mmol/L (98-107); Estimated GFR-MDRD 80; Glucose 139 mg/dL (80-115); Sodium 141 mmol/L (136-145)
[2019-06-16] MEDS: Meloxicam 7.5 MG TAB PO SCH (08:19)
[2019-06-16] MEDS: Bupropion 100 MG SR TAB PO SCH (08:19)
[2019-06-16] MEDS: Lidocaine 5% Patch TD SCH (08:19)
[2019-06-16] MEDS: Famotidine 20 MG TAB PO SCH (08:20)
[2019-06-16] MEDS: Aspirin 81 mg Enteric Coated Tablet PO SCH (08:20)
[2019-06-16] MEDS: Anastrozole 1 MG TAB PO SCH (08:20)
[2019-06-16] MEDS: predniSONE 20 MG TAB PO SCH (08:20)
[2019-06-16] MEDS: clonazePAM 0.5 MG TAB PO SCH (08:20)
[2019-06-16] MEDS: Fluticasone Propionate Nasal Spray 16 gm Bottle NASAL SCH (08:22)
[2019-06-16] MEDS: Insulin Glargine 20 UNITS in Pre-Filled Syringe 1 EACH SC SCH (08:27)
[2019-06-16] MEDS: HumaLOG 300 UNITS/3 ML VIAL SC PRN (13:17)
--- NOTE | 2019-06-16 14:28 | PDOC.HOSPP ---
- Subjective Subjective: 68 y/o female, independent living resident, with chronic back pain, DM, HTN, and others admitted with complaint of multiple falls as well as fever and hypoxia noted by EMS. Further evaluation revealed right lower lobe infiltrate and UTI. Patient later developed worsening SOB concerning for ARDS and was transfered to ICU. Treated with escalation of antibiotic, steroid, bronchodilators and oxygen with improvement. No new problem. getting PT/OT. - Objective Vital Signs & Weight: Vital Signs (12 hours) Temp Pulse Resp BP BP Pulse Ox 06/16/19 12:09 83 16 95 06/16/19 11:00 97.2 F L 92 18 121/77 95 06/16/19 08:00 98.0 F 88 20 152/73 H 95 Weight Weight 165 lb 12.602 oz Most Recent Monitor Data Heart Rate from ECG 85 NIBP 135/71 NIBP BP-Mean 92 Respiration from ECG 24 SpO2 87 Result Diagrams: 06/16/19 06:04 06/16/19 06:04 Additional Labs: Accuchecks 06/16/19 06/16/19 06/15/19 11:25 05:37 19:24 POC Glucose 308 H 165 H 349 H 06/15/19 06/15/19 06/15/19 18:20 17:08 16:27 POC Glucose 352 H 360 H 426 H ROS - Review of Systems All systems: All other ROS were reviewed and found negative. - Medication Medications: Active Medications Generic Name Dose Route Start Last Admin Trade Name Freq PRN Reason Stop Dose Admin Acetaminophen 1,000 mg 06/05/19 17:54 06/14/19 16:03 Tylenol PO 1,000 mg Q6H PRN Administration Mild Pain (1-3) Albuterol/Ipratropium 3 ml 06/10/19 19:00 06/16/19 12:09 Duoneb NEB 3 ml [id number] BRAD Administration Anastrozole 1 mg 06/07/19 09:00 06/16/19 08:20 Arimidex PO 1 mg DAILY BRAD Administration Aspirin 81 mg 06/06/19 09:00 06/16/19 08:20 Ecotrin PO 81 mg QAM BRAD Administration Bupropion HCl 200 mg 06/06/19 21:00 06/16/19 08:19 Wellbutrin Sr PO 200 mg BID BRAD Administration Clonazepam 0.5 mg 06/10/19 21:00 06/16/19 08:20 Klonopin PO 0.5 mg BID BRAD Administration Famotidine 20 mg 06/05/19 21:00 06/16/19 08:20 Pepcid PO 20 mg BID BRAD Administration Fluticasone Propionate 0 gm 06/06/19 09:00 06/16/19 08:22 Flonase Nasal [place] NASAL 2 spr DAILY BRAD Administration Guaifenesin 200 mg 06/05/19 17:54 06/06/19 20:35 Robitussin Sf PO 200 mg Q4H PRN Administration Cough Insulin Glargine 20 units/ 0.2 mls @ 0 mls/hr 06/06/19 09:00 06/16/19 08:27 Miscellaneous Medication SC 0.2 mls QAM BRAD Administration Insulin Human Lispro 0 units 06/05/19 17:54 06/16/19 13:17 Humalog SC 8 unit .MODERATE SLIDING SC PRN Administration Moderate Correctional Scale Insulin Human Lispro 0 units 06/05/19 17:54 06/15/19 20:42 Humalog SC 5 unit .BEDTIME SLIDING SC PRN Administration Bedtime Correctional Scale Lidocaine 1 patch 06/06/19 09:00 06/16/19 08:19 Lidoderm 5% Patch TD 1 patch DAILY BRAD Administration Meloxicam 7.5 mg 06/06/19 09:00 06/16/19 08:19 Mobic PO 7.5 mg QAM BRAD Administration Miscellaneous Medication 1 each 06/13/19 21:00 06/15/19 20:43 Lidocaine Patch Removal TOP Not Given 2100 BRAD Ondansetron HCl 4 mg 06/05/19 17:54 06/07/19 16:51 Zofran Odt PO 4 mg Q6H PRN Administration Nausea/Vomiting Prednisone 40 mg 06/13/19 08:00 06/16/19 08:20 Prednisone PO 06/18/19 08:01 40 mg QAM-WM BRAD Administration Quetiapine Fumarate 25 mg 06/10/19 21:00 06/16/19 08:20 Seroquel PO 25 mg BID BRAD Administration Ziprasidone 10 mg 06/11/19 01:08 06/11/19 01:25 Geodon IM 10 mg Q6H PRN Administration Agitation - Exam awake alert Eye: PERRL, anicteric sclera ENT: normocephalic atraumatic, moist mucosa Neck: supple, symmetric, no JVD Heart: RRR, murmur present (soft systolic murmur) Respiratory: no wheezes, no rales, no ronchi (fair air entry bilaterally.) Extremities: no cyanosis, no edema Neurological: CN's grossly intact, no focal deficits Psychiatric: normal affect, A&O x 3 Hosp A/P (1) Acute respiratory failure with hypoxia Code(s): J96.01 - ACUTE RESPIRATORY FAILURE WITH HYPOXIA Status: Acute (2) Acute metabolic encephalopathy Code(s): G93.41 - METABOLIC ENCEPHALOPATHY Status: Acute (3) Bacterial pneumonia Code(s): J15.9 - UNSPECIFIED BACTERIAL PNEUMONIA Status: Acute (4) E. coli UTI Code(s): N39.0 - URINARY TRACT INFECTION, SITE NOT SPECIFIED; B96.20 - UNSP ESCHERICHIA COLI THE CAUSE OF DISEASES CLASSD ELSWHR Status: Acute (5) Multiple falls Code(s): R29.6 - REPEATED FALLS Status: Acute (6) Sepsis Code(s): A41.9 - SEPSIS, UNSPECIFIED ORGANISM Status: Acute (7) DM2 (diabetes mellitus, type 2) Status: Chronic (8) HTN (hypertension) Code(s): I10 - ESSENTIAL (PRIMARY) HYPERTENSION Status: Chronic (9) Physical deconditioning Code(s): R53.81 - OTHER MALAISE Status: Acute (10) Hyponatremia Code(s): E87.1 - HYPO-OSMOLALITY AND HYPONATREMIA Status: Resolved (11) Acute on chronic diastolic (congestive) heart failure Code(s): I50.33 - ACUTE ON CHRONIC DIASTOLIC (CONGESTIVE) HEART FAILURE Status : Acute (12) Interstitial lung disease Code(s): J84.9 - INTERSTITIAL PULMONARY DISEASE, UNSPECIFIED Status: Acute - Plan Wean off oxygen Continue PT/OT For discharge to acute rehab once placement is concluded.
[2019-06-16] MEDS ORDERED: Bisacodyl 10 MG SUPP PR SCH (14:45)
--- NOTE | 2019-06-16 18:57 | DIS ---
DATE OF ADMISSION: 06/05/2019 DATE OF DISCHARGE: 06/16/2019 DISCHARGE DIAGNOSES: 1. Acute respiratory failure with hypoxia. 2. Acute metabolic encephalopathy. 3. Bacterial pneumonia. 4. Escherichia coli urinary tract infection. 5. Sepsis. 6. Physical deconditioning. 7. Multiple falls. 8. Type 2 diabetes mellitus. 9. Interstitial lung disease. 10. Acute on chronic diastolic heart failure. 11. Hyponatremia. 12. Hypertension. CONSULTS: Pulmonary and Critical Care. HOSPITAL COURSE: The patient is 68-year-old female, independent living resident with chronic back pain, diabetes, hypertension, and other comorbidities, who was admitted with complaints of multiple falls as well as fever and hypoxia. Further evaluation revealed right lower lobe infiltrate and features of urinary tract infection. Impression of acute respiratory failure and sepsis from bacterial pneumonia and UTI was made, and the patient was started on broad-spectrum antibiotic therapy, bronchodilators, and oxygen supplementation. However, hospital course was complicated by acute worsening of symptoms and chest x-ray showed infiltrates bilaterally concerning for ARDS. The patient was subsequently transferred to ICU with escalation of antibiotic therapy as well as steroid bronchodilators and oxygen therapy. The patient was treated with high-flow oxygen with improvement and was subsequently disconnected to regular nasal cannula oxygen supplementation. She also had echocardiogram, which showed diastolic dysfunction. With improvement, however, the patient was found to have physical deconditioning, hence was seen by Physical and Occupational Therapy. She was felt to be in need of acute aggressive rehabilitation, hence was discharged to inpatient rehabilitation for restorative therapy prior to going back to her usual residence. Hospital course also was complicated by acute kidney injury, which resolved with improvement of hemodynamics. DISCHARGE CONDITION: Improved. DISCHARGE DISPOSITION: Acute rehab. DISCHARGE MEDICATIONS: Please see discharge med rec. TIME SPENT: Discharge took more than 36 minutes. Job ID: [id number]
[2019-06-16 20:10] VITALS: BP 133/79; TEMP 98.3
[2019-06-16] MEDS ORDERED: Polyethylene Glycol 3350 17 GM Packet PO SCH (21:00)
[2019-06-17] MEDS ORDERED: Polyethylene Glycol 3350 17 GM Packet PO SCH (09:00)
--- NOTE | 2019-06-17 12:59 | EKG ---
Test Reason : Blood Pressure : / mmHG Vent. Rate : 100 BPM Atrial Rate : 100 BPM P-R Int : 174 ms QRS Dur : 078 ms QT Int : 324 ms P-R-T Axes : 020 010 030 degrees QTc Int : 417 ms Normal sinus rhythm Nonspecific ST and T wave abnormality Abnormal ECG Confirmed by MOLLY LOONEY DO ([id number]), assignment desk editor KHADAR DUENAS ([id number]) on 06/17/2019 12:58:46 PM Referred By: Confirmed By:MOLLY LOONEY DO
== END 2019-06-16 21:05 | DRG 871 ==
LOC: ERS 10:36 → T4-B 15:14 → IMCU/EMU 06-07 19:32 → T4-B 06-12 13:46
PROVIDERS: ADMIT Internal Medicine; ATTEND Internal Medicine
DX: A41.9 Sepsis, unspecified organism (principal); J96.01 Acute respiratory failure with hypoxia; G93.41 Metabolic encephalopathy; J15.9 Unspecified bacterial pneumonia; I50.33 Acute on chronic diastolic (congestive) heart failure; N39.0 Urinary tract infection, site not specified; J84.9 Interstitial pulmonary disease, unspecified; E87.1 Hypo-osmolality and hyponatremia; N17.9 Acute kidney failure, unspecified; B96.20 Unspecified Escherichia coli [E. coli] as the cause of diseases classified elsewhere; E11.9 Type 2 diabetes mellitus without complications; I11.0 Hypertensive heart disease with heart failure; M19.90 Unspecified osteoarthritis, unspecified site; G89.4 Chronic pain syndrome; E78.5 Hyperlipidemia, unspecified; E03.9 Hypothyroidism, unspecified; F17.220 Nicotine dependence, chewing tobacco, uncomplicated; F32.9 Major depressive disorder, single episode, unspecified; Z79.84 Long term (current) use of oral hypoglycemic drugs; Z79.899 Other long term (current) drug therapy; Z98.51 Tubal ligation status
CPT/HCPCS: 36415; 36416; 51701; 71045; 71046; 71250; 80048; 80053; 80202; 81003; 81015; 82805; 83605; 83735; 83880; 85007; 85025; 85027; 87040; 87077; 87086; 87186; 87389; 93005; 93306; 94640; 94760; 96365; 96366; 96367; A4353; J0456; J0692; J0696; J1815; J1940; J1956; J2060; J2405; J2920; J3370; J3486; J3490; J7512; J7620; Q0162

== ENCOUNTER 2019-07-16 10:08 | Outpatient (CLI) | payer MEDICARE, MEDICAID ==
--- NOTE | 2019-07-16 11:11 | MMO ---
Bilateral MAMMO Bilat Diag [facility]. CLINICAL HISTORY: Patient is 69 years old and is seen for diagnostic exam. The patient has the following family history of breast cancer: paternal aunt and cousin female. The patient has a history of malignant (generic) in the right breast in May,. The patient has a history of right Ultrasound Guided Core Biopsy in May, - malignant and right Lumpectomy in 2018 - malignant. VIEWS: The views performed were: bilateral craniocaudal with tomosynthesis; bilateral mediolateral oblique with tomosynthesis; bilateral mediolateral with tomosynthesis; and right exaggerated craniocaudal. FILMS COMPARED: The present examination has been compared to prior imaging studies performed at [facility] on 05/24/2018 and 05/30/2018. MAMMOGRAM FINDINGS: The breasts are heterogeneously dense, which could obscure a lesion on mammography. Finding 1: There are new post operative changes seen in the right breast. Finding 2: There is a stable oval mass seen in the sub-areolar region of the right breast. There are no suspicious masses, suspicious calcifications, or suspicious areas of architectural distortion. IMPRESSION: THERE IS NO MAMMOGRAPHIC EVIDENCE OF MALIGNANCY. A ROUTINE FOLLOW-UP MAMMOGRAM IN 1 YEAR IS RECOMMENDED. 3BTHE RESULTS OF THIS EXAM WERE SENT TO THE PATIENT.0B ACR BI-RADS Category 2 - Benign finding MAMMOGRAPHY NOTE: 1. A negative mammogram report should not delay a biopsy if a dominant of clinically suspicious mass is present. 2. Approximately 10% to 15% of breast cancers are not detected by mammography. 3. Adenosis and dense breasts may obscure an underlying neoplasm. Reported by: RUDY ARAUJO MD Electonically Signed: [id number]
== END 2019-07-16 10:09 | disposition home or self-care (01) ==
LOC: BICMAMMO 10:08
PROVIDERS: ATTEND Specialist
DX: Z08 Encounter for follow-up examination after completed treatment for malignant neoplasm (principal); Z85.3 Personal history of malignant neoplasm of breast; Z80.3 Family history of malignant neoplasm of breast; Z98.890 Other specified postprocedural states
CPT/HCPCS: 77066; G0279

== ENCOUNTER 2019-09-04 13:12 | Outpatient (CLI) | payer MEDICARE, MEDICAID ==
--- NOTE | 2019-09-04 15:09 | RAD ---
2 VIEW CHEST: Date: 09/04/19 HISTORY: Dyspnea. Comparison made to portable film of 06/08/19. FINDINGS: Lungs show no infiltrate or vascular congestion. Vascular congestion noted on prior studies is not ap parent today. The heart size is upper normal. Right rib deformities are again noted from old fracture s. IMPRESSION: No evidence of acute lung process. No evidence of vascular congestion today. POS: [facility]
== END 2019-09-04 13:13 | disposition home or self-care (01) ==
LOC: RAD 13:12
PROVIDERS: ATTEND Internal Medicine
DX: R06.00 Dyspnea, unspecified (principal)
CPT/HCPCS: 71046

== ENCOUNTER 2019-10-20 09:50 | Outpatient (CLI) | payer MEDICARE, MEDICAID ==
--- NOTE | 2019-10-20 10:41 | BD ---
EXAM: DEXA bone density examination HISTORY: Osteoporosis screening COMPARISON: None FINDINGS: L1--bone mineral density 0.876 g/sq cm; T score -1.0. Z score 0.8 L2--bone mineral density 1.057 g/sq cm; T score 0.3; Z score 2.4 L3--bone mineral density 1.162 g/sq cm; T score 0.7; Z score 2.9 L4--bone mineral density 1.165 g/sq cm; T score 0.9, Z score 3.2 Total L1-L4--bone mineral density 1.076 g/sq cm; T score 0.3, Z score 2.4 Left femoral neck--bone mineral density0.641; T score -1.9, Z score -0.1 Total proximal left femur--bone mineral density 0.71; T score -1.3, Z score 0.2 This patient has a 10 year WHO fracture risk of a major osteoporotic fracture of 17% and of a hip fra cture of 3.0%. IMPRESSION: Based on the WHO criteria, the patient's bone mineral density is consideredosteopenic. Th e patient is at moderate risk for fracture
== END 2019-10-20 09:51 | disposition home or self-care (01) ==
LOC: BICMAMMO 09:50
PROVIDERS: ATTEND Internal Medicine Hematology & Oncology
DX: M85.89 Other specified disorders of bone density and structure, multiple sites (principal); T38.6X5A Adverse effect of antigonadotrophins, antiestrogens, antiandrogens, not elsewhere classified, initial encounter; C50.411 Malignant neoplasm of upper-outer quadrant of right female breast
CPT/HCPCS: 77080

== ENCOUNTER 2020-02-07 13:43 | Emergency (ER) | payer MEDICARE, MEDICAID | END 2020-02-07 15:26 | disposition home or self-care (01) | LOC: ERS 13:43 | DX: K59.00 Constipation, unspecified (principal); F32.9 Major depressive disorder, single episode, unspecified; I10 Essential (primary) hypertension; F17.290 Nicotine dependence, other tobacco product, uncomplicated; M19.90 Unspecified osteoarthritis, unspecified site; Z79.899 Other long term (current) drug therapy; Z79.4 Long term (current) use of insulin | CPT/HCPCS: 99283 ==

== ENCOUNTER 2020-02-21 17:00 | Emergency (ER) | payer MEDICARE, MEDICAID, OTHER ==
[~2020-02-21 17:00] MED LIST: Iopamidol-370 76% 500 ML 1 ML ONE
[2020-02-21] MEDS ORDERED: Acetaminophen 500 MG TAB ONE (17:18)
[2020-02-21 17:26] LABS: #Eosinphils 1.1 thou/uL (0.0-0.7); #Lymphocytes 1.4 thou/uL (1.20-3.40); #Monocytes 1.2 thou/uL (0.11-0.59); %Basophils 0.1 % (0.0-1.0); %Eosinophils 8.7 % (0.0-10.0); %Lymphocytes 11.2 % (21.0-51.0); %Monocytes 9.7 % (0.0-10.0); %Neutrophils 70.3 % (42.0-75.0); Hemoglobin 13.3 g/dL (12.0-16.0); Mean Corpuscular HGB CONC 33.4 g/dL (32.0-36.0); Mean Corpuscular Hemoglobin 31.3 pg (27.0-31.0); Mean Corpuscular Volume 93.5 fL (78.0-98.0); Mean Platelet Volume 8.3 fL (7.4-10.4); Platelet Count 262 thou/uL (130-400); RBC Distribution Width 13.3 % (11.5-14.5); Red Blood Cell (RBC) Count 4.26 mill/uL (4.20-5.40); White Blood Cell (WBC) Count 12.8 thou/uL (4.8-10.8)
[2020-02-21 17:41] LABS: Bacteria/HPF None Seen HPF (None Seen); Bilirubin Negative (Negative); Blood, Urine Trace (Negative); Clarity Clear (Clear); Glucose, Urine (Dipstick) Greater than 1000 mg/dL (Negative); Leukocyte Negative Leu/uL (Negative); Nitrite Negative (Negative); Protein, Urine (Dipstick) Negative (Neg-Trace); RBC/HPF 0-3 HPF (0-3); Squamous Epithelial None Seen HPF (0-3); Urobilinogen Normal mg/dL (Less than 2); WBC/HPF 0-3 HPF (0-3)
[2020-02-21 17:46] LABS: ALT (SGPT) 13 U/L (8-55); AST (SGOT) 18 U/L (5-34); Albumin 4.5 g/dL (3.4-4.8); Alkaline Phosphatase 68 U/L (40-110); Anion Gap 17 mmol/L (10-20); BUN (Urea Nitrogen) 13 mg/dL (9.8-20.1); Bilirubin, Total 0.3 mg/dL (0.2-1.2); Calc. Creatinine Clearance 0 mL/min (70-130); Calcium 10.6 mg/dL (7.8-10.44); Carbon Dioxide 23 mmol/L (23-31); Chloride 105 mmol/L (98-107); Estimated GFR-MDRD 65; Globulin 2.8 g/dL (2.4-3.5); Glucose 98 mg/dL (80-115); Lipase 16 U/L (8-78); Potassium 3.7 mmol/L (3.5-5.1); Protein, Total 7.3 g/dL (6.0-8.3); Sodium 141 mmol/L (136-145)
--- NOTE | 2020-02-21 18:34 | CT ---
CT ABDOMEN AND PELVIS WITH IV CONTRAST: 02/21/20 INDICATIONS: Abdominal pain and nausea and vomiting. No comparison exam. FINDINGS: The lung bases appear clear. There are calcified granuloma in both lung bases. The liver, spleen and pancreas appear unremarkable. Small sliding diaphragmatic hernia. The gallbladder is mildly distended. No evidence of pericholecystic edema. No evidence of biliary bree t dilatation. Adrenal glands unremarkable. Kidneys unremarkable. Small bowel loops normal caliber. Appendix unremarkable. Large volume stool throughout the colon. Scattered diverticula. No CT evidence of diverticulitis. Aorta is calcified but normal caliber. Images through the pelvis show unremarkable urinary bladder. Uterus is unremarkable. There is a left adnexal cystic mass measuring 3.7 cm and there is a small right adnexal cystic mass m easuring 2.4 cm. Bilateral ovarian cystic masses would be suspected. IMPRESSION: 1. Distended gallbladder. Consider gallbladder ultrasound as cholesterol gallstones may not be a pparent on CT. 2. Large volume stool throughout the colon suggests constipation. 3. Bilateral ovarian cystic masses as describe above. Elective CHIEF OPERATOR LOCK TENDER consultation is recommended. POS: [facility]AN[facility]
== END 2020-02-21 19:04 | disposition home or self-care (01) ==
LOC: ERS 17:00
DX: K59.00 Constipation, unspecified (principal); N83.202 Unspecified ovarian cyst, left side; N83.201 Unspecified ovarian cyst, right side; R50.9 Fever, unspecified; R11.0 Nausea; I10 Essential (primary) hypertension; M19.90 Unspecified osteoarthritis, unspecified site; F32.9 Major depressive disorder, single episode, unspecified; Z87.891 Personal history of nicotine dependence
CPT/HCPCS: 74177; 80053; 83605; 83690; 85025; 93005; U0002; 36415; 51701; 81003; 81015; 87635; 96360; A4353; Q9967

== ENCOUNTER 2020-02-23 18:59 | Emergency (ER) | payer MEDICARE, MEDICAID ==
--- NOTE | 2020-02-23 19:28 | RAD ---
Chest one view HISTORY: Fever. Possible Covid 19. COMPARISON: 09/04/2019. FINDINGS: Cardiac silhouette and pulmonary vasculature are unremarkable. Mediastinum is midline with aortic calcification. Subtle increase in parenchymal opacity within each lower lobe is similar in appearance to the previou s exam. It is significantly improved from 06/08/2019 study. No evidence of pneumothorax. Old injury to the right upper lateral chest again demonstrated. product sales representative leads overlie the chest. IMPRESSION : Chronic mild bibasilar parenchymal opacity. No active cardiopulmonary abnormalities are demonstrated. Atherosclerosis.
[2020-02-23 19:46] LABS: #Basophils 0.1 thou/uL (0.0-0.2); #Eosinphils 1.1 thou/uL (0.0-0.7); #Lymphocytes 1.1 thou/uL (1.20-3.40); #Monocytes 0.9 thou/uL (0.11-0.59); #Neutrophils 7.6 thou/uL (1.40-6.50); %Basophils 0.5 % (0.0-1.0); %Eosinophils 9.9 % (0.0-10.0); %Lymphocytes 10.2 % (21.0-51.0); %Monocytes 8.5 % (0.0-10.0); %Neutrophils 70.9 % (42.0-75.0); Hemoglobin 12.9 g/dL (12.0-16.0); Mean Corpuscular HGB CONC 32.7 g/dL (32.0-36.0); Mean Corpuscular Hemoglobin 30.9 pg (27.0-31.0); Mean Corpuscular Volume 94.4 fL (78.0-98.0); Mean Platelet Volume 8.1 fL (7.4-10.4); Platelet Count 267 thou/uL (130-400); RBC Distribution Width 13.3 % (11.5-14.5); Red Blood Cell (RBC) Count 4.17 mill/uL (4.20-5.40); White Blood Cell (WBC) Count 10.7 thou/uL (4.8-10.8)
--- NOTE | 2020-02-23 20:06 | CT ---
CT abdomen and pelvis noncontrast HISTORY: Flank pain. COMPARISON: 02/21/2020. FINDINGS: Mild linear scarring at the left anterior lung base. Calcified granulomata are consistent w ith healed granulomatous disease. Each renal collecting system, ureter, and urinary bladder are decompressed without stone apparent. There is calcification throughout the arterial structures. Lack of contrast limits evaluation for other abnormalities. Gallbladder remains somewhat distended bu t does not appear inflamed. A 1.2 cm lipoma associated with the third portion of the duodenum is stable without evidence of complication. Diverticula arise from the colon without adjacent inflammati on. Oval homogeneous soft tissue/fluid density mass at the left adnexa is 3.4 cm x 2.9 cm greatest diameters on today's axial images. The right adnexal lesion is 2.3 cm x 2.3 cm. IMPRESSION : No CT evidence of urinary tract obstruction or calcification. Diverticulosis. No evidence of diverticulitis. Persistent bilateral adnexal masses. Please consider nonemergent gynecology evaluation. Atherosclerosis.
[2020-02-23 20:20] LABS: ALT (SGPT) 13 U/L (8-55); AST (SGOT) 15 U/L (5-34); Albumin 4.2 g/dL (3.4-4.8); Alkaline Phosphatase 60 U/L (40-110); Anion Gap 12 mmol/L (10-20); BUN (Urea Nitrogen) 14 mg/dL (9.8-20.1); Bilirubin, Total 0.3 mg/dL (0.2-1.2); Calc. Creatinine Clearance 0 mL/min (70-130); Calcium 9.9 mg/dL (7.8-10.44); Carbon Dioxide 26 mmol/L (23-31); Chloride 104 mmol/L (98-107); Estimated GFR-MDRD 70; Globulin 2.6 g/dL (2.4-3.5); Glucose 96 mg/dL (80-115); Potassium 3.7 mmol/L (3.5-5.1); Protein, Total 6.8 g/dL (6.0-8.3); Sodium 138 mmol/L (136-145)
[2020-02-23] MEDS ORDERED: Ondansetron ODT 4 MG TAB ONE (20:25)
--- NOTE | 2020-02-28 10:00 | EKG ---
Test Reason : Blood Pressure : / mmHG Vent. Rate : 092 BPM Atrial Rate : 092 BPM P-R Int : 172 ms QRS Dur : 082 ms QT Int : 348 ms P-R-T Axes : 029 008 011 degrees QTc Int : 430 ms Sinus rhythm with Premature atrial complexes with Abberant conduction Abnormal ECG Confirmed by BONIFACIO READ ([id number]), script editor MANISHA WILD ([id number]) on 02/28/2020 9:59:54 AM Referred By: Confirmed By:BONIFACIO READ
== END 2020-02-23 21:16 | disposition home or self-care (01) ==
LOC: ERS 18:59
DX: R10.9 Unspecified abdominal pain (principal); R19.7 Diarrhea, unspecified; R11.0 Nausea; I10 Essential (primary) hypertension; E78.00 Pure hypercholesterolemia, unspecified; E11.9 Type 2 diabetes mellitus without complications; F32.9 Major depressive disorder, single episode, unspecified; Z87.891 Personal history of nicotine dependence; Z79.84 Long term (current) use of oral hypoglycemic drugs; Z79.82 Long term (current) use of aspirin; Z79.899 Other long term (current) drug therapy
CPT/HCPCS: 71045; 74176; 80053; 83605; 85025; 93005; Q0162; 96360

== ENCOUNTER 2020-03-01 11:51 | Outpatient (CLI) | payer MEDICARE, MEDICAID ==
--- NOTE | 2020-03-01 12:45 | RAD ---
EXAM: XR Abdomen 2 View PROVIDED CLINICAL HISTORY: Constipation and abdominal pain for a month. COMPARISON: None FINDINGS: Calcified granuloma is seen at the right lung base. There is mild eventration of the right hemidiaphr agm with volume loss right lung base. Vascular calcifications are seen overlying left upper quadrant along the expected course of the splen ic artery. No additional suspicious calcifications are seen. Phleboliths and vascular calcifications overlie the pelvis. Bowel gas pattern is nonspecific. Degenerative changes are seen in the spine. IMPRESSION: 1. Nonspecific bowel gas pattern. 2. Vascular calcifications.
== END 2020-03-01 11:52 | disposition home or self-care (01) ==
LOC: BICMAMMO 11:51
PROVIDERS: ATTEND Internal Medicine Gastroenterology
DX: K59.00 Constipation, unspecified (principal); R10.9 Unspecified abdominal pain; R63.4 Abnormal weight loss; I70.90 Unspecified atherosclerosis
CPT/HCPCS: 74019

== ENCOUNTER 2020-05-10 15:22 | Outpatient (CLI) | payer MEDICARE, MEDICAID ==
--- NOTE | 2020-05-10 15:47 | ULT ---
Exam: Right axillary ultrasound HISTORY: Patient is a scar marker along the right axilla. Evaluate for lymphadenopathy TECHNIQUE: Targeted sonographic imaging of the right axilla was performed. Static images are reviewed FINDINGS: Static images demonstrate soft tissue echotexture. No evidence of a fluid collection. No ev idence of lymphadenopathy. IMPRESSION: No sonographic evidence of lymphadenopathy.
== END 2020-05-10 15:23 | disposition home or self-care (01) ==
LOC: BICULT 15:22
PROVIDERS: ATTEND Internal Medicine Hematology & Oncology
DX: R59.0 Localized enlarged lymph nodes (principal); Z85.3 Personal history of malignant neoplasm of breast
CPT/HCPCS: 76999

== ENCOUNTER 2020-05-27 05:42 | Outpatient (CLI) | payer MEDICARE, MEDICAID, OTHER ==
[2020-05-27 14:09] LABS: #Basophils 0.1 thou/uL (0.0-0.2); #Eosinphils 0.3 thou/uL (0.0-0.7); #Lymphocytes 1.3 thou/uL (1.20-3.40); #Monocytes 0.5 thou/uL (0.11-0.59); %Basophils 0.8 % (0.0-1.0); %Eosinophils 4.8 % (0.0-10.0); %Monocytes 6.9 % (0.0-10.0); %Neutrophils 69.4 % (42.0-75.0); Hemoglobin 12.3 g/dL (12.0-16.0); Mean Corpuscular HGB CONC 30.7 g/dL (32.0-36.0); Mean Corpuscular Hemoglobin 28.7 pg (27.0-31.0); Mean Corpuscular Volume 93.6 fL (78.0-98.0); Mean Platelet Volume 9.3 fL (7.4-10.4); Platelet Count 213 thou/uL (130-400); RBC Distribution Width 13.7 % (11.5-14.5); White Blood Cell (WBC) Count 7.2 thou/uL (4.8-10.8)
[2020-05-27 14:14] LABS: INR-International Normal Ratio 0.9; Prothrombin Time 12.1 sec (12.0-14.7)
[2020-05-27 14:24] LABS: Bacteria/HPF None Seen HPF (None Seen); Bilirubin Negative (Negative); Blood, Urine Negative (Negative); Clarity Clear (Clear); Glucose, Urine (Dipstick) Greater than 1000 mg/dL (Negative); Ketone, Urine Negative (Negative); Leukocyte Negative Leu/uL (Negative); Nitrite Negative (Negative); Protein, Urine (Dipstick) Negative (Neg-Trace); RBC/HPF 0-3 HPF (0-3); Squamous Epithelial None Seen HPF (0-3); Urobilinogen Normal mg/dL (Less than 2); WBC/HPF 0-3 HPF (0-3)
[2020-05-27 14:37] LABS: Anion Gap 12 mmol/L (10-20); BUN (Urea Nitrogen) 11 mg/dL (9.8-20.1); Calc. Creatinine Clearance 0 mL/min (70-130); Calcium 9.5 mg/dL (7.8-10.44); Carbon Dioxide 26 mmol/L (23-31); Chloride 109 mmol/L (98-107); Estimated GFR-MDRD 70; Glucose 93 mg/dL (80-115); Sodium 143 mmol/L (136-145)
[2020-05-28 12:47] LABS: SARS-CoV-2 MS2 Positive; SARS-CoV-2 N Gene Negative; SARS-CoV-2 S Gene Negative; SARS-CoV-2 orf1ab Negative
== END 2020-05-27 05:43 | disposition home or self-care (01) ==
LOC: LABBT 05:42
PROVIDERS: ATTEND Orthopaedic Surgery
DX: Z01.818 Encounter for other preprocedural examination (principal); Z11.59 Encounter for screening for other viral diseases; M17.11 Unilateral primary osteoarthritis, right knee
CPT/HCPCS: 80048; 81001; 85025; 85610; 87081; 93005; U0003; 87635; 93010

== ENCOUNTER 2020-06-01 07:49 | Day surgery (SDC) | payer MEDICARE, MEDICAID ==
[2020-05-25 10:50] VITALS: BMI 25.5
[2020-06-01] MEDS ORDERED: Tranexamic Acid 1,000 MG/10 ML VIAL ONE (09:11)
[2020-06-01] MEDS ORDERED: Vancomycin 1 GM/200 ML BAG ONE (09:11)
[2020-06-01] MEDS ORDERED: Sodium Chloride 0.9% 100 ML ONE (09:11)
[2020-06-01] MEDS ORDERED: Fentanyl 100 MCG/2 ML VIAL ONE ×4 (09:26→13:23)
[2020-06-01] MEDS ORDERED: Midazolam HCl 2 mg/2 ml Vial ONE (09:26)
[2020-06-01] MEDS ORDERED: Promethazine HCl 25 MG/ML VIAL IM PRN ×3 (09:44→12:35)
[2020-06-01] MEDS ORDERED: Zolpidem Tartrate 5 MG TAB PO PRN ×2 (09:44→10:46)
[2020-06-01] MEDS ORDERED: Ondansetron PF 4 MG/2 ML Vial IVP PRN ×2 (09:44→10:46)
[2020-06-01] MEDS ORDERED: traMADol HCl 50 MG TAB PO PRN (09:44)
[2020-06-01] MEDS ORDERED: Ropivacaine HCl/PF 250 ML in Premix Bag 1 BAG NERVE BLCK SCH (09:44)
[2020-06-01] MEDS ORDERED: Fentanyl 100 MCG/2 ML VIAL IV PRN (09:45)
[2020-06-01] MEDS ORDERED: Acetaminophen/Codeine 30-300mg Tablet PO PRN ×2 (10:47)
[2020-06-01] MEDS ORDERED: Acetaminophen 500 MG TAB PO PRN (10:48)
[2020-06-01] MEDS ORDERED: Promethazine HCl 25 MG/ML VIAL SLOW IVP PRN (12:35)
[2020-06-01] MEDS ORDERED: Ondansetron HCl/PF 4 MG/2 ML Vial IVP PRN (12:35)
--- NOTE | 2020-06-01 12:51 | RAD ---
RADIOGRAPH RIGHT KNEE 2 VIEWS: DATE: 06/01/2020 HISTORY: 69-year-old female with chronic right knee pain status post surgery FINDINGS: Resurfacing changes of articular surfaces of distal femur, patella, and tibial plateau. Metallic pros theses cover the resurfaced articular surfaces of distal femur and tibial plateau. Subcutaneous emphysema in the anterior soft tissues of the thigh and knee indicate recent status of surgery. IMPRESSION: Very recently status post total right knee replacement arthroplasty.
--- NOTE | 2020-06-01 13:44 | OP ---
DATE OF PROCEDURE: 06/01/2020 This is Romaine Rosenbaum PA-C dictating a report for Hany Cao MD. PREOPERATIVE DIAGNOSIS: End-stage tricompartmental osteoarthritis, right knee. POSTOPERATIVE DIAGNOSIS: End-stage tricompartmental osteoarthritis, right knee. PROCEDURE PERFORMED: Cemented cruciate-sparing computer-assisted navigated right total knee arthroplasty. MANAGER PLANT: Romaine Rosenbaum PA-C ANESTHESIA: General via LMA, augmented with indwelling adductor canal and single-shot sciatic block. COMPONENTS USED: [employer] size 3 cemented cruciate-sparing primary femoral component with a size 3 cemented primary tibial baseplate, 9-mm polyethylene fixed bearing insert, and A29 patella button. TOURNIQUET TIME: 51 minutes at 300 mmHg. INPUT: 1 L of normal saline. OUTPUT: 150 mL of clear yellow urine. BLOOD LOSS: 50 mL. FINDINGS: End-stage severe degenerative tricompartmental disease, [id number] arthrosis, periarticular osteophyte formation, large serous effusion, hypertrophic synovium, and changes consistent with chronic degenerative tricompartmental osteoarthritis. DRAINS: None. SPECIMENS: None. COMPLICATIONS: None. COUNTS: Correct. INDICATIONS FOR SURGERY: Lanie is a 69-year-old female who has had progressive right knee pain and problem with standing and walking for the last 5 to 7 years. She has failed conservative management and elected to proceed with total knee arthroplasty as definitive treatment of her pain. PROCEDURE IN DETAIL: After informed consent was obtained in the preoperative holding area, the patient was taken to the operative suite where general anesthesia was induced. Once adequate level of general anesthesia was obtained, the patient was positioned and a well-padded tourniquet was placed around the right proximal thigh. The right lower extremity was then prepped and draped in the usual sterile fashion. Prior to exsanguination, a time-out was called and all members of the surgical team agreed upon site, surgeon, and patient. The extremity was then exsanguinated and the tourniquet was raised. A midline longitudinal incision was then made directly over the patella extending 2 fingerbreadths above the superior pole of the patella and 2 fingerbreadths inferior to the inferior patellar pole of the patella. Deeper subcutaneous layers were dissected sharply and local bleeding was controlled with Bovie electrocautery. A quad tendon longitudinal split was then made sharply and a median parapatellar arthrotomy was carried out both sharp and with Bovie electrocautery, carried down to 1 fingerbreadth medial to the tibial tubercle. The knee was then placed into flexion and the patella was everted nicely, and a copious fat pad ectomy was performed, allowing for greater exposure of the tibia. The computer-assisted distal femoral fiducial was then placed and pinned firmly, and the distal femoral cutting guide was pinned firmly into place. The oscillating saw was then used to remove the appropriate amount of bone. The surgeon assistant used the oscillating saw to make the distal femoral resection. The 4-in-1 cutting block was then placed on the distal femur and the oscillating saw was used to remove the appropriate amount of bone off the anterior, posterior, and chamfer cuts. After completion of bone cuts, the anterior cruciate ligament was resected sharply and the posterior cruciate ligament retractor was placed and the tibia was subluxed for better exposure. Partial meniscectomies were carried out, and the tibial computer-assisted fiducial was pinned, and the cutting guide was placed. Oscillating saw was then used to remove the bone, with Hohmann retractors used to take care and protect the collateral ligaments. After the tibial resection was performed, a laminar stone spreader operator was placed in between the freshened bone cuts. The knee placed at 90 degrees and further bilateral meniscectomies were carried out, and the curved osteotome and curettage were used to remove any excess bone spurs in the posterior compartment. The trial femoral component, tibial baseplate were placed with the appropriate polyethylene trial insert with an appropriate polyethylene spacer and patellar button. The knee was taken through full range of motion with flexion and extension from 0 to 90 degrees and patellar broach squarely in the trochlea without any squinting or subluxation noted. The knee was also stable to varus and valgus stressing at 0, 15, 45, and 90 degrees of flexion. The drawer was negative. All trial components were then removed and the keel punch was used to provide the appropriate defect in the tibia with a mallet. The surgeon assistant provided retraction and exposure prior to malleting the components. The freshened bone cuts were copiously irrigated with pulsatile lavage of about 1.5 L to remove all excess debris. The freshened bone cuts were then dried with suction and lap sponge. The knee was placed in flexion and retractors were placed to provide access to all bone cuts. Tobramycin-impregnated methyl methacrylate cement was then placed on the freshened bone cuts and implants which were malleted firmly into place. Curettage and De Witt elevators were used to remove any excess bone cement. The knee was placed into full extension and the patellar button was placed under compression, and the cement was allowed to cure. Once completed, the components were again taken through full range of motion and copious irrigation of the knee was carried out with another liter of normal saline. All components were inspected fully with full range of motion and varus and valgus stressing. There was no laxity noted and full extension was observed clinically. Primary closure was accomplished with #2 interrupted Vicryl stitch of the arthrotomy defect. This was oversewn with a #2 running Quill barbed stitch. The subcutaneous layer was then closed with a running 0 barbed Monocryl stitch and skin closure accomplished with a running subcuticular 3-0 Monocryl barbed Quill stitch and augmented with cement on the skin. Tourniquet was lowered. Good spontaneous return of distal pulses was noted clinically and a sterile dressing was applied to the incision. The procedure was terminated without any complications. The patient was awakened in the operative suite and taken to the recovery room in stable condition. Job ID: [id number]
[2020-06-01] MEDS ORDERED: Ondansetron PF 4 MG/2 ML Vial ONE (13:59)
[2020-06-01] MEDS ORDERED: Dexamethasone 20 MG/5 ML VIAL ONE (13:59)
[2020-06-01] MEDS ORDERED: PROPOFOL 200 MG/20 ML VIAL ONE (13:59)
[2020-06-01] MEDS ORDERED: Lidocaine 1% PF 5 ML VIAL ONE (13:59)
[2020-06-01] MEDS ORDERED: Ropivacaine 0.2% HCl/PF (40 MG/20 ML VIAL) ONE (13:59)
[2020-06-01] MEDS ORDERED: Bupivacaine HCl 0.5%/Epinephrine 1:200,000/PF 30 ml Vial ONE (13:59)
[2020-06-01] MEDS: Ketorolac Tromethamine 30 MG/ML VIAL IVP SCH ×2 (16:35→16:53)
[2020-06-01] MEDS: Atorvastatin Calcium 10 MG TAB PO SCH (16:42)
[2020-06-01] MEDS: Sodium Chloride 0.9% 1,000 ML IV SCH ×2 (16:50→17:48)
[2020-06-01] MEDS: CEFAZOLIN 2 GM in Premix Bag 1 BAG IVPB SCH (16:50)
[2020-06-01] MEDS: HYDROcodone/Acetaminophen 10/325 mg Tablet PO PRN (17:43)
[2020-06-01] MEDS: Bupropion 100 MG SR TAB PO SCH (20:26)
[2020-06-01] MEDS: Aspirin 81 mg Enteric Coated Tablet PO SCH (20:27)
[2020-06-02] MEDS: Ketorolac Tromethamine 30 MG/ML VIAL IVP SCH ×4 (00:01→18:20)
[2020-06-02] MEDS: CEFAZOLIN 2 GM in Premix Bag 1 BAG IVPB SCH (00:02)
[2020-06-02 05:40] LABS: Hemoglobin 10.6 g/dL (12.0-16.0); Mean Corpuscular HGB CONC 32.7 g/dL (32.0-36.0); Mean Corpuscular Hemoglobin 31.4 pg (27.0-31.0); Mean Corpuscular Volume 95.9 fL (78.0-98.0); Mean Platelet Volume 8.5 fL (7.4-10.4); Platelet Count 201 thou/uL (130-400); RBC Distribution Width 13.6 % (11.5-14.5); Red Blood Cell (RBC) Count 3.39 mill/uL (4.20-5.40)
[2020-06-02] MEDS: Sodium Chloride 0.9% 1,000 ML IV SCH ×2 (07:41→18:25)
[2020-06-02] MEDS: Ferrous Gluconate 324 MG TAB PO SCH ×2 (08:14→18:20)
[2020-06-02] MEDS: glipiZIDE 10 MG TAB PO SCH (08:14)
[2020-06-02] MEDS: Multivitamin W/ Minerals 1 TAB PO SCH (08:15)
[2020-06-02] MEDS: Senokot S 8.6-50 MG TAB PO SCH ×2 (08:15→20:14)
[2020-06-02] MEDS: Losartan 25 MG TAB PO SCH (08:15)
[2020-06-02] MEDS: Aspirin 81 mg Enteric Coated Tablet PO SCH ×2 (08:16→20:14)
[2020-06-02] MEDS: HYDROcodone/Acetaminophen 10/325 mg Tablet PO PRN ×3 (08:16→20:15)
[2020-06-02] MEDS: Hydrochlorothiazide 25 MG TAB PO SCH (08:17)
[2020-06-02] MEDS ORDERED: Non-Formulary Item 1 EACH (Insulin Glargine,Hum.Rec.Anlog [Basaglar Kwikpen U-100] 30 UNI SQ SCH (09:00)
[2020-06-02] MEDS ORDERED: Aspirin 81 mg Enteric Coated Tablet PO SCH (09:00)
[2020-06-02] MEDS: Insulin Glargine 30 UNITS in Pre-Filled Syringe 1 EACH SC SCH (09:48)
[2020-06-02] MEDS: Empagliflozin 10 MG TAB PO SCH (11:16)
[2020-06-02] MEDS: Bupropion 100 MG SR TAB PO SCH ×2 (11:16→20:24)
[2020-06-02] MEDS: Anastrozole 1 MG TAB PO SCH (11:16)
[2020-06-02] MEDS: Atorvastatin Calcium 10 MG TAB PO SCH (18:22)
[2020-06-03] MEDS: HYDROcodone/Acetaminophen 10/325 mg Tablet PO PRN ×3 (00:31→10:29)
[2020-06-03] MEDS: Ketorolac Tromethamine 30 MG/ML VIAL IVP SCH ×2 (00:32→05:46)
[2020-06-03] MEDS: Sodium Chloride 0.9% 1,000 ML IV SCH ×2 (03:11→13:46)
[2020-06-03 05:31] LABS: Hemoglobin 9.9 g/dL (12.0-16.0); Mean Corpuscular HGB CONC 31.9 g/dL (32.0-36.0); Mean Platelet Volume 8.3 fL (7.4-10.4); Platelet Count 192 thou/uL (130-400); RBC Distribution Width 13.7 % (11.5-14.5); Red Blood Cell (RBC) Count 3.31 mill/uL (4.20-5.40); White Blood Cell (WBC) Count 10.1 thou/uL (4.8-10.8)
[2020-06-03] MEDS: glipiZIDE 10 MG TAB PO SCH (05:46)
[2020-06-03] MEDS: Ferrous Gluconate 324 MG TAB PO SCH ×2 (07:57→16:46)
[2020-06-03] MEDS: Hydrochlorothiazide 25 MG TAB PO SCH (07:58)
[2020-06-03] MEDS: Senokot S 8.6-50 MG TAB PO SCH ×2 (07:58→20:57)
[2020-06-03] MEDS: Aspirin 81 mg Enteric Coated Tablet PO SCH ×2 (07:58→20:57)
[2020-06-03] MEDS: Losartan 25 MG TAB PO SCH (07:58)
[2020-06-03] MEDS: Multivitamin W/ Minerals 1 TAB PO SCH (07:59)
[2020-06-03] MEDS: Anastrozole 1 MG TAB PO SCH (10:27)
[2020-06-03] MEDS: Empagliflozin 10 MG TAB PO SCH (10:29)
[2020-06-03] MEDS: Insulin Glargine 30 UNITS in Pre-Filled Syringe 1 EACH SC SCH (10:31)
[2020-06-03] MEDS: Bupropion 100 MG SR TAB PO SCH ×2 (11:24→20:57)
[2020-06-03] MEDS: Atorvastatin Calcium 10 MG TAB PO SCH (16:47)
[2020-06-03] MEDS: traMADol HCl 50 MG TAB PO PRN (18:15)
[2020-06-04] MEDS: Sodium Chloride 0.9% 1,000 ML IV SCH ×3 (00:12→20:11)
[2020-06-04] MEDS: traMADol HCl 50 MG TAB PO PRN ×4 (01:32→20:05)
[2020-06-04] MEDS: diphenhydrAMINE 25 MG CAP PO PRN ×2 (03:41→20:05)
[2020-06-04 05:38] LABS: Hemoglobin 10.2 g/dL (12.0-16.0); Mean Corpuscular HGB CONC 32.1 g/dL (32.0-36.0); Mean Corpuscular Hemoglobin 30.3 pg (27.0-31.0); Mean Corpuscular Volume 94.2 fL (78.0-98.0); Mean Platelet Volume 8.5 fL (7.4-10.4); Platelet Count 209 thou/uL (130-400); RBC Distribution Width 13.6 % (11.5-14.5); Red Blood Cell (RBC) Count 3.36 mill/uL (4.20-5.40)
[2020-06-04] MEDS: glipiZIDE 10 MG TAB PO SCH ×2 (06:28→09:15)
[2020-06-04] MEDS: Senokot S 8.6-50 MG TAB PO SCH ×2 (09:15→20:07)
[2020-06-04] MEDS: Losartan 25 MG TAB PO SCH (09:16)
[2020-06-04] MEDS: Hydrochlorothiazide 25 MG TAB PO SCH (09:16)
[2020-06-04] MEDS: Aspirin 81 mg Enteric Coated Tablet PO SCH ×2 (09:16→20:07)
[2020-06-04] MEDS: Anastrozole 1 MG TAB PO SCH (09:23)
[2020-06-04] MEDS: Multivitamin W/ Minerals 1 TAB PO SCH (09:24)
[2020-06-04] MEDS: Ferrous Gluconate 324 MG TAB PO SCH ×2 (09:24→17:40)
[2020-06-04] MEDS: Empagliflozin 10 MG TAB PO SCH (09:24)
[2020-06-04] MEDS: Acetaminophen 325 MG TAB PO PRN ×2 (09:28→15:08)
[2020-06-04] MEDS: Insulin Glargine 30 UNITS in Pre-Filled Syringe 1 EACH SC SCH (10:03)
[2020-06-04] MEDS: Bupropion 100 MG SR TAB PO SCH ×2 (14:59→20:07)
[2020-06-04] MEDS: Atorvastatin Calcium 10 MG TAB PO SCH (17:40)
[2020-06-05] MEDS: traMADol HCl 50 MG TAB PO PRN (05:03)
[2020-06-05 06:11] LABS: Mean Corpuscular HGB CONC 31.1 g/dL (32.0-36.0); Mean Corpuscular Hemoglobin 29.2 pg (27.0-31.0); Mean Platelet Volume 8.4 fL (7.4-10.4); Platelet Count 258 thou/uL (130-400); RBC Distribution Width 13.9 % (11.5-14.5); Red Blood Cell (RBC) Count 3.43 mill/uL (4.20-5.40); White Blood Cell (WBC) Count 9.4 thou/uL (4.8-10.8)
[2020-06-05] MEDS: Sodium Chloride 0.9% 1,000 ML IV SCH ×2 (07:26→14:29)
[2020-06-05] MEDS: Ferrous Gluconate 324 MG TAB PO SCH ×2 (09:38→17:33)
[2020-06-05] MEDS: Losartan 25 MG TAB PO SCH (09:38)
[2020-06-05] MEDS: Senokot S 8.6-50 MG TAB PO SCH (09:40)
[2020-06-05] MEDS: Aspirin 81 mg Enteric Coated Tablet PO SCH (09:40)
[2020-06-05] MEDS: Anastrozole 1 MG TAB PO SCH (09:40)
[2020-06-05] MEDS: Hydrochlorothiazide 25 MG TAB PO SCH (09:40)
[2020-06-05] MEDS: Empagliflozin 10 MG TAB PO SCH (09:40)
[2020-06-05] MEDS: Bupropion 100 MG SR TAB PO SCH (09:40)
[2020-06-05] MEDS: Multivitamin W/ Minerals 1 TAB PO SCH (09:41)
[2020-06-05] MEDS: HYDROcodone/Acetaminophen 10/325 mg Tablet PO PRN ×2 (09:42→17:33)
[2020-06-05 11:11] VITALS: TEMP 98.3
[2020-06-05] MEDS: Insulin Glargine 30 UNITS in Pre-Filled Syringe 1 EACH SC SCH (11:11)
[2020-06-05 15:02] VITALS: BP 122/69
[2020-06-05] MEDS: Atorvastatin Calcium 10 MG TAB PO SCH (17:33)
== END 2020-06-05 20:00 ==
LOC: SDC 07:49 → SURG A 10:46 → SDC 06-05 20:00
PROVIDERS: ATTEND Orthopaedic Surgery
PROC: 0SRC0J9 Replacement of Right Knee Joint with Synthetic Substitute, Cemented, Open Approach (ICD-10-PCS; principal; 2020-06-01)
PROC: 8E0YXBZ Computer Assisted Procedure of Lower Extremity (ICD-10-PCS; 2020-06-01)
DX: M17.11 Unilateral primary osteoarthritis, right knee (principal); Z79.4 Long term (current) use of insulin; Z79.811 Long term (current) use of aromatase inhibitors; Z79.82 Long term (current) use of aspirin; Z79.899 Other long term (current) drug therapy
CPT/HCPCS: 20985; 27447; 73560; 82962; 85027; 97110; 97116 ×4; 97139 ×6; 97530; 97535; 98960; C1713; C1776; 36415; 36416; J0670; J0690; J1100; J1815; J1885; J2250; J2405; J2704; J2795; J3010; J3370; J3490; J8499; Q0163

== ENCOUNTER 2020-07-20 13:34 | Outpatient (CLI) | payer MEDICARE, MEDICAID ==
--- NOTE | 2020-07-20 14:21 | MMO ---
Bilateral MAMMO Bilat Diag [facility]. CLINICAL HISTORY: Patient is 70 years old and is seen for diagnostic exam. The patient has the following family history of breast cancer: paternal aunt and cousin female. The patient has a history of malignant (generic) in the right breast in May,. The patient has a history of right Ultrasound Guided Core Biopsy in May, - malignant and right Lumpectomy in 2018 - malignant. VIEWS: The views performed were: bilateral craniocaudal with tomosynthesis; bilateral mediolateral oblique with tomosynthesis; and bilateral mediolateral with tomosynthesis. FILMS COMPARED: The present examination has been compared to prior imaging studies performed at [facility] on 05/24/2018, 05/30/2018 and 07/16/2019. This study has been interpreted with the assistance of computer-aided detection. MAMMOGRAM FINDINGS: The breasts are heterogeneously dense, which could obscure a lesion on mammography. Finding 1: There is a stable mass seen in the sub-areolar region of the right breast. Finding 2: There are post operative changes seen in the right breast. Finding 3: Benign calcifications are noted bilaterally. There are no suspicious masses, suspicious calcifications, or new areas of architectural distortion. IMPRESSION: THERE IS NO MAMMOGRAPHIC EVIDENCE OF MALIGNANCY. A ROUTINE FOLLOW-UP MAMMOGRAM IN 1 YEAR IS RECOMMENDED. THE RESULTS OF THIS EXAM WERE SENT TO THE PATIENT. ACR BI-RADS Category 2 - Benign finding MAMMOGRAPHY NOTE: 1. A negative mammogram report should not delay a biopsy if a dominant of clinically suspicious mass is present. 2. Approximately 10% to 15% of breast cancers are not detected by mammography. 3. Adenosis and dense breasts may obscure an underlying neoplasm. Reported by: JONNA WONG MD Electonically Signed: [id number]
== END 2020-07-20 13:35 | disposition home or self-care (01) ==
LOC: BICMAMMO 13:34
PROVIDERS: ATTEND Specialist
DX: Z08 Encounter for follow-up examination after completed treatment for malignant neoplasm (principal); Z85.3 Personal history of malignant neoplasm of breast; Z80.3 Family history of malignant neoplasm of breast
CPT/HCPCS: 77066; G0279

== ENCOUNTER 2020-10-21 13:33 | Outpatient (CLI) | payer MEDICARE, MEDICAID ==
--- NOTE | 2020-10-21 15:21 | BD ---
Exam: DEXA Bone Density 10/21/20 HISTORY: 70-year-old postmenopausal female for screening. COMPARISON: 10/20/19. Lumbar Spine: BMD (g/cm2) T-SCORE L1 0.928 -0.6 L2 1.171 1.3 L3 1.209 1.1 L4 1.229 1.5 L1-L4 1.143 0.9 Left Femoral Neck: 0.628 -2.0 Total Proximal left Femur: 0.778 -1.3 Impression: Osteopenia. This patient has a ten year WHO fracture risk for a major osteoporotic fracture of 18% and for hip fr acture of 3.5%. POS: [facility]
== END 2020-10-21 13:34 | disposition home or self-care (01) ==
LOC: BICMAMMO 13:33
PROVIDERS: ATTEND Internal Medicine Hematology & Oncology
DX: Z13.820 Encounter for screening for osteoporosis (principal); M85.852 Other specified disorders of bone density and structure, left thigh; Z78.0 Asymptomatic menopausal state
CPT/HCPCS: 77080

== ENCOUNTER 2021-07-26 12:17 | Outpatient (CLI) | payer MEDICARE, MEDICAID | END 2021-07-26 12:18 | disposition home or self-care (01) | LOC: BICMAMMO 12:17 | PROVIDERS: ATTEND Specialist | DX: Z12.31 Encounter for screening mammogram for malignant neoplasm of breast (principal); Z80.3 Family history of malignant neoplasm of breast; Z85.3 Personal history of malignant neoplasm of breast; Z98.890 Other specified postprocedural states | CPT/HCPCS: 77063; 77067 ==

== ENCOUNTER 2021-10-24 09:51 | Outpatient (CLI) | payer MEDICARE, MEDICAID | END 2021-10-24 09:52 | disposition home or self-care (01) | LOC: BICMAMMO 09:51 | PROVIDERS: ATTEND Internal Medicine Hematology & Oncology | DX: M85.89 Other specified disorders of bone density and structure, multiple sites (principal); T36.6X5A Adverse effect of rifampicins, initial encounter; M81.0 Age-related osteoporosis without current pathological fracture | CPT/HCPCS: 77080 ==

== ENCOUNTER 2022-11-08 08:16 | Outpatient (CLI) | payer MEDICARE, MEDICAID | END 2022-11-08 08:17 | disposition home or self-care (01) | LOC: BICMAMMO 08:16 | PROVIDERS: ATTEND Internal Medicine Hematology & Oncology | DX: C50.411 Malignant neoplasm of upper-outer quadrant of right female breast (principal); T38.6X5A Adverse effect of antigonadotrophins, antiestrogens, antiandrogens, not elsewhere classified, initial encounter; M85.852 Other specified disorders of bone density and structure, left thigh; M85.851 Other specified disorders of bone density and structure, right thigh | CPT/HCPCS: 77080 ==

== ENCOUNTER 2022-11-16 14:04 | Emergency (ER) | payer MEDICARE, MEDICAID ==
[2022-11-16] MEDS ORDERED: cefTRIAXone\\ROCEPHIN 1 GM VIAL ONE (16:02)
[2022-11-16] MEDS ORDERED: Lidocaine 1% PF 5 ML VIAL ONE (16:03)
== END 2022-11-16 16:34 | disposition home or self-care (01) ==
LOC: ERS 14:04
DX: U07.1 COVID-19 (principal); J12.82 Pneumonia due to coronavirus disease 2019; E78.5 Hyperlipidemia, unspecified; E11.9 Type 2 diabetes mellitus without complications; M19.90 Unspecified osteoarthritis, unspecified site; Z87.891 Personal history of nicotine dependence; Z79.899 Other long term (current) drug therapy; Z79.82 Long term (current) use of aspirin
CPT/HCPCS: 71046; 87081; 87430; 87804 ×2; 96372; 99283; U0003; U0005; J0696

== ENCOUNTER 2023-08-21 08:33 | Outpatient (CLI) | payer MEDICARE, MEDICAID | END 2023-08-21 08:34 | disposition home or self-care (01) | LOC: BICMAMMO 08:33 | PROVIDERS: ATTEND Specialist | DX: Z08 Encounter for follow-up examination after completed treatment for malignant neoplasm (principal); Z85.3 Personal history of malignant neoplasm of breast | CPT/HCPCS: 77066; G0279 ==

== ENCOUNTER 2024-01-14 09:39 | Outpatient (CLI) | payer MEDICARE, MEDICAID | END 2024-01-14 09:40 | disposition home or self-care (01) | LOC: BICMAMMO 09:39 | PROVIDERS: ATTEND Internal Medicine Hematology & Oncology | DX: Z13.820 Encounter for screening for osteoporosis (principal); T38.6X5A Adverse effect of antigonadotrophins, antiestrogens, antiandrogens, not elsewhere classified, initial encounter; M85.851 Other specified disorders of bone density and structure, right thigh; M85.852 Other specified disorders of bone density and structure, left thigh | CPT/HCPCS: 77080 ==

== ENCOUNTER 2024-06-04 10:17 | Outpatient (CLI) | payer MEDICARE, MEDICAID | END 2024-06-04 10:18 | disposition home or self-care (01) | LOC: BICMRI 10:17 | PROVIDERS: ATTEND Family Medicine | DX: H93.A1 Pulsatile tinnitus, right ear (principal) | CPT/HCPCS: 70544 ==

== ENCOUNTER 2024-12-23 11:25 | Outpatient (CLI) | payer MEDICARE, MEDICAID | END 2024-12-23 11:26 | disposition home or self-care (01) | LOC: BICMAMMO 11:25 | PROVIDERS: ATTEND Internal Medicine Hematology & Oncology | DX: Z12.31 Encounter for screening mammogram for malignant neoplasm of breast (principal); Z80.3 Family history of malignant neoplasm of breast; Z85.3 Personal history of malignant neoplasm of breast; Z98.890 Other specified postprocedural states | CPT/HCPCS: 77063; 77067 ==